=== PATIENT | male | born 1960 | race African-American/Black ===

== ENCOUNTER 2023-03-02 19:43 | Inpatient (IN) | payer OTHER ==
[~2023-03-02] VITALS: Ht 180.3 cm; Wt 74.8 kg
[~2023-03-02 19:43] MED LIST: BENA40TA PO; DIGO250T6 PO; FURO-570 PO; METO25TA14 PO; WARF10TA PO
[2023-03-02 19:44] VITALS: BP 83/52
--- NOTE | 2023-03-02 19:44 | NUR ---
193- [facility]. DR. GUZMÁN BEDSIDE
--- NOTE | 2023-03-02 19:44 | NUR ---
BIB MEDIC TRACH DEPENDENT RESP DISTRESS , SPO2 1ST CONTACT 74% , HYPOTENSIVE, FULL CODE, 300ML IVF GIVEN BY MEDIC
[2023-03-02] MEDS ORDERED: NACL 0.9% 2,000 ML IV SCH (19:45)
[2023-03-02] MEDS ORDERED: cefTRIAXone 1,000 MG in DEXT 5% MINI-BAG PLUS 50 ML IV ONE (19:45)
--- NOTE | 2023-03-02 19:49 | NUR ---
HYPOTENSIVE MD MADE AWARE , ORDER RECEIVED 2L .9% NSBOLUS
[2023-03-02] MEDS ORDERED: cefTRIAXone 1,000 MG VIAL ONE (20:24)
[2023-03-02 20:28] LABS: BASOPHILS # (AUTO) 0.1 K/uL (0.00-0.22); BASOPHILS % (AUTO) 0.5 % (0.0-2.0); EOSINOPHILS # (AUTO) 0.2 K/uL (0-0.4); EOSINOPHILS % (AUTO) 1.4 % (0.0-4.0); HEMATOCRIT 22.8 % (36-52); HEMOGLOBIN 7.2 g/dL (12.0-18.0); LYMPHOCYTES # (AUTO) 1.1 K/uL (2.0-11.5); LYMPHOCYTES % (AUTO) 6.7 % (20.5-51.1); MEAN CORPUSCULAR HEMOGLOBIN 24 pg (27-31); MEAN CORPUSCULAR HGB CONC 31 g/dL (33-37); MEAN CORPUSCULAR VOLUME 76.8 fL (80-94); MONOCYTES # (AUTO) 1.5 K/uL (0.8-1.0); MONOCYTES % (AUTO) 8.8 % (1.7-9.3); NEUTROPHILS # (AUTO) 14.2 K/uL (1.8-7.7); NEUTROPHILS % (AUTO) 82.6 % (42.2-75.2); PLATELET COUNT (AUTO) 467 K/uL (140-450); RED BLOOD CELL COUNT(AUTO) 2.97 MIL/uL (4.20-6.10); WHITE BLOOD COUNT (AUTO) 17.1 K/uL (4.8-10.8)
[2023-03-02 20:39] LABS: APPEARANCE,URINE CLEAR (CLEAR); BILIRUBIN,URINE NEGATIVE (NEGATIVE); BLOOD, URINE 2+ (NEGATIVE); COLOR,URINE YELLOW (YELLOW); LEUKOCYTE ESTERASE ,URINE TRACE (NEGATIVE); NITRITE, URINE NEGATIVE (NEGATIVE); UGLUCOSE 3+ (NEGATIVE)
[2023-03-02] MEDS ORDERED: NOREPINEPHRINE 4 MG in DEXTROSE 5% 250 ML IV ONE (20:40)
[2023-03-02 20:42] LABS: ALBUMIN 2.1 g/dL (3.4-5.0); CARBON DIOXIDE 27.3 mmol/L (21-32); POTASSIUM 5.3 mmol/L (3.5-5.1); TOTAL BILIRUBIN 0.3 mg/dL (0.0-1.0)
[2023-03-02] MEDS ORDERED: NOREPINEPHRINE 4 MG/4 ML VIAL IV ONE (20:44)
--- NOTE | 2023-03-02 21:01 | NUR ---
2000 ML 0.9 NS BOLUS COMPLETED PT REMAIN HYPOTENSIVE, LEVOPHED GTT INITIATED ORDERED
--- NOTE | 2023-03-02 21:04 | NUR ---
Levophed started at 2104 at rate of 4 mcg/min.
--- NOTE | 2023-03-02 21:06 | NUR ---
PICC LINE NURSE AT TO INSERT PICC LINE
--- NOTE | 2023-03-02 21:10 | NUR ---
PICC LINE PLACEMENT CHECK VIA CXR, OK Ramona OU PICC LINE PER DR GUZMÁN
--- NOTE | 2023-03-02 21:14 | NUR ---
Correction: Levophed was started at 2103 not 2113. Currently running at 6mcg/min at this time.
--- NOTE | 2023-03-02 21:35 | NUR ---
CONTYINUE TO TITRATE LEVOPHED, DUE TO HYPOTENSION 79/59
[2023-03-02] MEDS ORDERED: ACETAMINOPHEN 325 MG TAB PO PRN (22:30)
[2023-03-02] MEDS ORDERED: ZOLPIDEM 5 MG TAB PO PRN (22:30)
[2023-03-02] MEDS ORDERED: HYDROcodone/APAP 7.5/325 MG 1 TAB PO PRN (22:30)
[2023-03-02] MEDS ORDERED: NACL 0.9% 1,000 ML IV SCH (22:30)
[2023-03-02] MEDS ORDERED: DOCUSATE SODIUM 100 MG GELCAP PO PRN (22:30)
[2023-03-02] MEDS ORDERED: POTASSIUM CHLORIDE 10 MEQ TABER PO PRN (22:30)
[2023-03-02] MEDS ORDERED: guaiFENesin DM 200/20 MG-10 ML 10 ML UDC PO PRN (22:30)
[2023-03-02] MEDS ORDERED: ONDANSETRON 4 MG/2 ML VIAL IM/IVP PRN (22:30)
[2023-03-02] MEDS ORDERED: NACL 0.9% 1,000 ML IV ONE ×2 (22:40→22:50)
[2023-03-02] MEDS ORDERED: VANCOMYCIN 1GM/DEXT 5% PREMIX 200 ML IV ONE (22:45)
[2023-03-02] MEDS ORDERED: VANCOMYCIN PER PHARMACY MC ONE (22:45)
[2023-03-02 23:09] LABS: MAGNESIUM 2.6 mg/dL (1.8-2.4); PHOSPHORUS 5.3 mg/dL (2.5-4.9)
[2023-03-02] MEDS ORDERED: MIDO5TAB4 GT (23:09)
[2023-03-02] MEDS ORDERED: ATOR80TA27 GT (23:09)
[2023-03-02] MEDS ORDERED: METO100T22 GT (23:09)
[2023-03-02] MEDS ORDERED: ALPR0.2518 GT (23:09)
[2023-03-02] MEDS ORDERED: BACL10TA4 GT (23:09)
[2023-03-02] MEDS ORDERED: QUET100T44 PO (23:09)
[2023-03-02] MEDS ORDERED: BANA1POW GT (23:09)
--- NOTE | 2023-03-02 23:20 | NUR ---
RECEIVED PT FROM FROM ER NURSE, TA GARCIA. PT WHEELED VIA GURNEY, WITH SPONTANEOUS EYE OPENING. NON VERBAL. WITH TRACHEOSTOMY TO VENTILATOR. WITH LEFT IJ LINE GAUGE 18 - INTACT. WITH LEFT DOUBLE LUMEN CATHETER TO LEVOPHED AT 12 MCG/MIN. WITH GTUBE IN PLACE. BARBA CATHETER ATTACHED TO BAG DRAINING WELL. SAFETY MEASURES IN PLACE.
--- NOTE | 2023-03-02 23:22 | NUR ---
TRANSPORTED PT TO ICU WITH LARRY RT - UNEVENTFUL TRANSPEARL
[2023-03-02 23:49] LABS: PROTHROMBIN TIME 18.6 secs (10.8-13.4)
[2023-03-03] VITALS (30 sets, daily range): BP systolic 69–146; BP diastolic 48–96
[2023-03-03] MEDS ORDERED: VANCOMYCIN 1,000 MG VIAL ONE (00:30)
--- NOTE | 2023-03-03 01:59 | NUR ---
PATIENT ON PRESSURE CONTROL MODE DUE TO HIGH PEAK PRESSURES. PC 18 RR 14 ITIME 0.90 PEEP 5
[2023-03-03] MEDS ORDERED: NOREPINEPHRINE 4 MG/4 ML VIAL IV ONE (02:50)
[2023-03-03] MEDS ORDERED: NOREPINEPHRINE 8 MG in DEXTROSE 5% 250 ML IV PRN (03:00)
[2023-03-03 05:30] LABS: BASOPHILS % (AUTO) 0.1 % (0.0-2.0); EOSINOPHILS % (AUTO) 0.1 % (0.0-4.0); HEMATOCRIT 23.7 % (36-52); HEMOGLOBIN 7.5 g/dL (12.0-18.0); LYMPHOCYTES # (AUTO) 1.3 K/uL (2.0-11.5); MEAN CORPUSCULAR HEMOGLOBIN 24 pg (27-31); MEAN CORPUSCULAR HGB CONC 32 g/dL (33-37); MEAN CORPUSCULAR VOLUME 76.1 fL (80-94); MONOCYTES # (AUTO) 1.5 K/uL (0.8-1.0); MONOCYTES % (AUTO) 8.2 % (1.7-9.3); NEUTROPHILS # (AUTO) 15.9 K/uL (1.8-7.7); PLATELET COUNT (AUTO) 516 K/uL (140-450); RED BLOOD CELL COUNT(AUTO) 3.11 MIL/uL (4.20-6.10); RED CELL DISTRIBUTION WIDTH 19.9 % (11.6-13.7); WHITE BLOOD COUNT (AUTO) 18.8 K/uL (4.8-10.8)
[2023-03-03 05:52] LABS: ANION GAP 15.8 (8-16); CARBON DIOXIDE 26.7 mmol/L (21-32); POTASSIUM 5.5 mmol/L (3.5-5.1)
[2023-03-03 06:05] LABS: LYMPHOCYTES % (AUTO) 7.1 % (20.5-51.1); NEUTROPHILS % (AUTO) 84.5 % (42.2-75.2)
[2023-03-03] MEDS ORDERED: DEXMEDETOMIDINE HCL 100 MCG/ML 2 ML VIAL IV ONE ×2 (06:19→23:13)
--- NOTE | 2023-03-03 07:15 | NUR ---
REPORT GIVEN TO DAY SHIFT NURSE, REYES RN. ALL QUESTIONS ANSWERED.
[2023-03-03] MEDS ORDERED: ALBUTEROL SULFATE/IPRATROPIU 3 ML SOL IH PRN (07:25)
--- NOTE | 2023-03-03 07:25 | NUR ---
REPORT RECEIVED FROM DARLING RN, ALL CARES ASSUMED. PT TRACH TO VENT AC/PC 18, 100%, 5. PT RESTING IN BED WITH EYES OPEN, NOT TRACKING OR FOLLOWING COMMANDS. HR 130-140, RR 35-45. LEVOPHED INFUSING TO JERMAINE PICC. BARBA CATHETER TO GRAVITY.
[2023-03-03] MEDS ORDERED: ALBUTEROL SULFATE/IPRATROPIU 3 ML SOL IH ONE (07:33)
--- NOTE | 2023-03-03 07:56 | NUR ---
TRACHEAL SUCTION FOR LARGE THIN YELLOW WITH BLOOD TINGE SECRETIONS; SPUTUM CULTURE SPECIMEN OBTAINED; FORWARDED TO LAB
--- NOTE | 2023-03-03 07:58 | NUR ---
RECEIVED ON A [employer] R860 VENTILATOR PLUGGED INTO RED OUTLET TO A SHILEY XLT #7 AIRWAY SECURED WITH A PEPPER TRACH TIE; TRACHEOSTOMY TUBE PRESENTING WITH PROTRUSION AND AIR LEAKAGE FROM STOMA; DEFLATED CUFF PUSHED TRACHEOSTOMY TUBE IN WITH TRACH PLATE NOW FLUSH WITH STOMA; INCREASED CUFF PRESSURE TO MOV; AMBU BAG AT BEDSIDE; VENTILATOR MODE ON PRESSURE CONTROL; REVIEWED CURRENT AND PREVIOUS PEAK PRESSURES EQUAL AND LESS THAN [id number]; UNABLE TO MAINTAIN ADEQUATE EXPIRATORY Vt OF 6ml/kg (ARDS [id number]); CHANGED MODE TO PRVC NOTED; CUFF PRESSURE INFLATED X 3 FOR MOV; YOUTH SPECIALIST TO MONITOR FOR BLOWN CUFF
[2023-03-03] MEDS: PANTOPRAZOLE 40 MG TABEC PO SCH (08:24)
[2023-03-03] MEDS: VANCOMYCIN PER PHARMACY MC SCH (09:00)
[2023-03-03] MEDS: PIPERACILLIN/TAZOBACTAM 3.375 GM in DEXTROSE 5% 50 ML IV SCH ×3 (09:00→16:41)
--- NOTE | 2023-03-03 09:45 | NUR ---
CALLED TO ICU ABOUT DESATURATION. UPON EVALUATION PT HEART RATE DROPPED AND BLOOD PRESSURE. CODE BLUE WAS CALLED AT 1028.HIGH QUALITY CPR WAS GIVEN WITH 2 ROUNDS OF ASLS DRUGS GIVEN. APROX 1042 ROSC WAS ATTAINED AND PLACED BACK ON VENTILATOR. ABG DRAWN AND RESULTS WERE CALLED TO DR MAXWELL. PER DOCTOR ORDER 2 AMPS OF BICAB AND DECREASE LEVO. WILL CONTINUE TO MONITOR
[2023-03-03] MEDS ORDERED: DEXTROSE 50% 50 ML SYR IVP ONE ×2 (10:26→10:37)
[2023-03-03] MEDS ORDERED: EPINEPHrine PFS 0.1 MG/ML SYR IVP ONE (10:26)
[2023-03-03] MEDS ORDERED: CODE BLUE PARTICIPANT 1 EA MISC MC ONE (10:26)
[2023-03-03] MEDS ORDERED: SODIUM BICARBONATE 8.4% PFS 50 MEQ/50 ML SYR IVP ONE ×2 (10:26→11:06)
--- NOTE | 2023-03-03 10:42 | NUR ---
POST ROSC ABG OBTAINED WITH PATIENT ON VENTILATOR
--- NOTE | 2023-03-03 10:44 | NUR ---
GOOD CHEST RISE AIRWAY PATENT
[2023-03-03] MEDS ORDERED: SODIUM BICARBONATE 8.4% 50 MEQ in DEXTROSE 5% 1,000 ML IV SCH (10:50)
[2023-03-03] MEDS ORDERED: DEXTROSE 50% 50 ML SYR IVP PRN (11:15)
--- NOTE | 2023-03-03 11:20 | NUR ---
PARTH CARLSON AT APPROXIMATELY 1027, PT HEART RATE DECREASED RAPIDLY. PULSES CHECKED, NO PALPABLE PULSES, HR 32BPM ON LIQUID COMPOUNDER. PARTH CARLSON CALLED, COMPRESSIONS STARTED AT 1028. ER DOCTOR LESTER LEADING CODE. ACHIEVED ROSC AT 1037. SEE PARTH CARLSON RECORD IN PT CHART. POST PARTH ABG OBTAINED. DR MAXWELL GAVE TELEPHONE ORDER FOR 2 AMP SODIUM BICARB IVP ONCE. Addendum: 03/03/23 at 1406 by Agency Nurse Eva, RN RN POST DR BRADY ALBA ORDERED 1L NS BOLUS ONCE.
--- NOTE | 2023-03-03 11:25 | NUR ---
DR ALISSA ROBBINS AT BEDSIDE. VERBAL ORDER RECEIVED FOR D51/2NS @ 60ML/HR; HYDROCORTISONE 100MG IVP Q6H. NEOSYNEPHRINE IF CURRENT LEVOPHED DOSE IS NOT SUFFICIENT TO KEEP MAP >65.
[2023-03-03] MEDS ORDERED: SODIUM POLYSTYRENE 15 GM/60 ML UDBTL PEG SCH (11:30)
[2023-03-03] MEDS: BLOOD GLUCOSE MONITORING 1 DEV DEV FS SCH ×3 (11:55→21:00)
[2023-03-03] MEDS: SODIUM BICARBONATE 8.4% 100 MEQ in DEXT 5% / NACL 0.45% 1,000 ML IV SCH (12:43)
[2023-03-03] MEDS: methylPREDNISolone SS 125 MG/2 ML VIAL IVP SCH ×2 (12:49→21:25)
[2023-03-03] MEDS: ALBUTEROL SULFATE/IPRATROPIU 3 ML SOL IH SCH ×2 (13:30→19:47)
--- NOTE | 2023-03-03 13:35 | NUR ---
RESTING COMFORTABLY STABLE GOOD CHEST RISE DEEP TRACHEAL SUCTION FOR MODERATE THIN YELLOW SECRETIONS AIRWAY PATENT
--- NOTE | 2023-03-03 15:52 | NUR ---
SEDATED STABLE EQUAL CHEST RISE DEEP TRAC HEAL SUCTION FOR COPIOUS THIN HAZY SECRETIONS AIRWAY PATENT Addendum: 03/03/23 at 1715 by Michael Contreras RT ACTUAL TIME [id number]
--- NOTE | 2023-03-03 16:12 | NUR ---
ON OR ABOUT THIS TIME; DORMITORY SUPERVISOR ASSIST WITH REYES/FREELANCE DATA ENTRY; PATIENT REPOSITION
[2023-03-03] MEDS ORDERED: DIGOXIN 0.25 MG/ML AMP IV SCH (18:25)
[2023-03-03] MEDS: DEXMEDETOMIDINE HCL 400 MCG in NACL 0.9% 96 ML IV PRN (18:40)
[2023-03-04] VITALS (26 sets, daily range): BP systolic 89–132; BP diastolic 53–90
[2023-03-04] MEDS: ALBUTEROL SULFATE/IPRATROPIU 3 ML SOL IH SCH ×2 (01:44→07:18)
--- NOTE | 2023-03-04 02:20 | NUR ---
RECEIVED PATIENT FROM TA FOURNIER FOR CONTINUITY OF CARE.
[2023-03-04 04:40] LABS: BASOPHILS % (AUTO) 0.2 % (0.0-2.0); HEMOGLOBIN 7.6 g/dL (12.0-18.0); LYMPHOCYTES % (AUTO) 4.5 % (20.5-51.1); MEAN CORPUSCULAR HEMOGLOBIN 24 pg (27-31); MEAN CORPUSCULAR HGB CONC 32 g/dL (33-37); MONOCYTES # (AUTO) 0.6 K/uL (0.8-1.0); MONOCYTES % (AUTO) 2.6 % (1.7-9.3); NEUTROPHILS % (AUTO) 92.7 % (42.2-75.2); PLATELET COUNT (AUTO) 453 K/uL (140-450); RED BLOOD CELL COUNT(AUTO) 3.16 MIL/uL (4.20-6.10); WHITE BLOOD COUNT (AUTO) 21.6 K/uL (4.8-10.8)
[2023-03-04] MEDS ORDERED: DEXMEDETOMIDINE HCL 100 MCG/ML 2 ML VIAL IV ONE (04:44)
[2023-03-04 04:49] LABS: ANION GAP 15.1 (8-16); CARBON DIOXIDE 28.8 mmol/L (21-32); CREATININE 2.2 mg/dL (0.6-1.3); POTASSIUM 4.9 mmol/L (3.5-5.1)
--- NOTE | 2023-03-04 05:00 | NUR ---
MORNING BED BATH DONE; KEPT CLEAN DRY AND COMFORTABLE.
[2023-03-04] MEDS: methylPREDNISolone SS 125 MG/2 ML VIAL IVP SCH ×3 (05:31→20:59)
--- NOTE | 2023-03-04 07:10 | NUR ---
RECEIVED ON A [employer] R860 VENTILATOR PLUGGED INTO RED OUTLET TOLERATING WELL WITHOUT ADVERSE REACTIONS NOTED TO A SHILEY XLT #7 AIRWAY SECURED WITH A PEPPER TRACH TIE CUFF PRESSURE CHECKED NOTED AMBU BAG AT BEDSIDE SEDATED STABLE NO DISTRESS NOTED EQUAL CHEST RISE DEEP TRACHEAL SUCTION FOR LARGE THIN HAZY SECRETIONS AIRWAY PATENT
[2023-03-04] MEDS: SODIUM BICARBONATE 8.4% 100 MEQ in DEXT 5% / NACL 0.45% 1,000 ML IV SCH (07:37)
[2023-03-04] MEDS: DEXMEDETOMIDINE HCL 400 MCG in NACL 0.9% 96 ML IV PRN ×3 (07:38→19:10)
[2023-03-04] MEDS: PANTOPRAZOLE 40 MG TABEC PO SCH (08:28)
--- NOTE | 2023-03-04 08:49 | NUR ---
PATIENT HAS BEEN SCREENED AND CATEGORIZED HIGH NUTRITION RISK. PATIENT WILL BE SEEN WITHIN 1-2 DAYS OF ADMISSION. FNS CONSULT RECEIVED FOR TUBE FEEDING RECOMMENDATION ON 03/04/23. 03/02/23-03/04/[address]
[2023-03-04] MEDS: VANCOMYCIN PER PHARMACY MC SCH (09:00)
--- NOTE | 2023-03-04 09:13 | NUR ---
PT. WITH LOW VASHTI SCALE AT MODERATE TO HIGH RISK, CONTINUE TO FOLLOW PRESSURE INJURY PREVENTION INTERVENTIONS. -POSITIONING: TURN AND REPOSITION PATIENT Q 2H OR SOONER USE PILLOWS TO KEEP BONY PROMINENCES FROM DIRECT CONTACT WITH SURFACES USE REPOSITIONING WEDGES TO PROVIDE 30-DEGREE ANGLE FOR SIDE LYING POSITIONS OFFLOADING OR FOAM DRESSING TO ALL TUBING TO PREVENT MEDICAL DEVICES RELATED PRESSURE INJURY -RE-EVALUATING AND MANAGING INCONTINENCE MONITOR SKIN CONDITION DURING POSITION CHANGE DO NOT MASSAGE REDNESS, BONY PROMINENCES FREQUENT WOO-CARE AND PROVIDE BARRIER CREAMS PRN IF SOILING MOISTURE CONTROL BY OFFER BED CHANDRA/URINAL /ABSORBENT PAD TO WICK AND HOLD MOISTURE KEEP SKIN DRY AND PROTECT FROM FRICTION -MANAGE FRICTION/SHEAR/MOBILITY KEEP HOB AT THE LOWEST LEVEL OF ELEVATION NO MORE THAN 30 DEGREE UNLESS OTHERWISE CONTRAINDICATED USE LIFT SHEET OR TRANSFER DEVICE TO MOVE PATIENT AND PREVENT LATERAL SHEER. PROTECT HEELS, ELBOWS BONY PROMINENCES WITH SKIN BERRIES OR FOAM DRESSING IF EXPOSED TO FRICTION OFFLOAD BILATERAL HEELS BY PLACING PILLOWS UNDER CALVES AT ALL TIMES, UNLESS OTHERWISE CONTRAINDICATED -PRESSURE REDISTRIBUTION SURFACE THERAPY TRUDI ISOFLEX MATTRESS -NUTRITION: PLEASE FOLLOW RD RECOMMENDATIONS AND OFFER NUTRITION SUPPLEMENTS IF ORDERED. PLEASE CONTACT WOUND CARE NURSE FOR ANY QUESTION AND CHANGE OF WOUND CONDITION.
--- NOTE | 2023-03-04 09:55 | NUR ---
SEDATED RESTING COMFORTABLY NO APPARENT DISTRESS NOTED EQUAL CHEST RISE DEEP TRACHEAL SUCTION FOR SMALL THI YELLOW SECRETIONS AIRWAY PATENT SATURATION 100% ON FIO2 OF 60% PEEP [id number] TITRATED FIO2 TO 55% REYES/RUBBER MOLD MAKER NOTIFIED
[2023-03-04] MEDS: VANCOMYCIN 1,000 MG in DEXTROSE 5% 250 ML IV SCH (10:10)
--- NOTE | 2023-03-04 10:15 | NUR ---
ON OR ABOUT THIS TIME BULB GROWER ASSIST WITH RN FOR PATIENT REPOSITION
[2023-03-04] MEDS ORDERED: NACL 0.9% 1,000 ML IV SCH (12:00)
[2023-03-04] MEDS: BLOOD GLUCOSE MONITORING 1 DEV DEV FS SCH ×2 (12:02→17:31)
[2023-03-04] MEDS: PIPERACILLIN/TAZOBACTAM 3.375 GM in DEXTROSE 5% 50 ML IV SCH ×2 (12:03→20:58)
--- NOTE | 2023-03-04 12:24 | NUR ---
03/04/23 RD INITIAL ASSESSMENT COMPLETED PLEASE REFER TO NUTRITION ASSESSMENT UNDER CARE ACTIVITY FOR ESTIMATED NUTRITIONAL NEEDS. 1. MONITOR NPO STATUS 2. WHEN/IF MEDICALLY APPROPRIATE TO START TF, RECOMMEND VITAL AF 1.2 AT GOAL RATE 70 ML/HR, FWF 200 ML Q6H TOLERATED - PROVIDES 1680 ML TOTAL VOLUME, 2016 KCAL, 126 GM PROTEIN AND 2126 ML FREE WATER DAILY MEETING 100% ESTIMATED KCAL AND PROTEIN NEEDS; ADEQUATE - START TF AT 2O ML/HR INCREASE BY 2O ML Q4H UNTIL GOAL IS REACHED TOLERATED 3. CONSULT RD PRN 4. RD TO FOLLOW-UP 2-3 DAYS, HIGH RISK REVIEWED BY MONET HI RD
--- NOTE | 2023-03-04 12:57 | NUR ---
DR. JUHI ROBBINS IN ICU; REVIEWED CARDIAC RATE VS HHN THERAPY WITH DUONEB; VORBO: OKAY TO CHANGE TO XOPONEX 1.25mg; ROUTINE ABG TOMORROW 03/05 AM 0800
[2023-03-04] MEDS ORDERED: LEVALBUTEROL 1.25 MG/0.5 ML NEBU INH PRN (13:10)
[2023-03-04] MEDS: AMIODARONE 450 MG in DEXTROSE 5% 250 ML IV SCH (13:33)
[2023-03-04] MEDS ORDERED: DIGOXIN 0.25 MG/ML AMP IV SCH (13:45)
[2023-03-04] MEDS: LEVALBUTEROL 1.25 MG/0.5 ML NEBU INH SCH ×2 (13:48→20:06)
--- NOTE | 2023-03-04 13:48 | NUR ---
SEDATED NO PULMONARY DISTRESS NOTED EQUAL CHEST RISE GOOD AERATION THROUGHOUT BILATERAL LUNG AIRWAY PATENT
--- NOTE | 2023-03-04 14:03 | NUR ---
DC PLANNING 62 Y O MALE PATIENT A RESIDENT OF [facility] ADMITTED TO ICU FOR HYPOXIA,AND HYPOTENSION.WAS STARTED ON LEVOPHED IN ER.WBC,LACTIC ACID AND TROPONIN LEVELS HIGH.PATIENT IS TACHYCARDIC. OMN AMIO DRIP.BLOOD CULTURE (-).NO MRSA ISOLATED.URINE CULTURE WITH NEGATIVE RODS.CXR SHOWS MULTIFOCAL PNA.ON ZOSYN AND VANCO.ID,NEPHRO,PULMO,AND CARDIO ON BOARD.DC PLAN- BACK TO [facility] WHEN PATIENT RESPONDS TO TX AND PATIENT CONDITION IMPROVES. CM TO FOLLOW. Addendum: 03/06/23 at 1627 by AUBREY BURCH CM DC PLANNING PATIENT IS TRACH TO VENT.03/06 CXR -STABLE CARDIOMEGALY AND PULM VASCULAR CONGESTION.WBC 23.1. BLOOD CULTURE NO GROWTH.NO MRSA ISOLATED FROM NARES.URINE (+) FOR K.PNEUMONIAE.ON AZITHROMYCIN AND VANCOMYCIN.PULMO,NEPHRO,ID AND CARDIO ON BOARD.CM TO FOLLOW. Addendum: 03/12/23 at 1623 by AUBREY BURCH CM DC PLANNING FOR EXPLOR LAP 03/13 TAKEDOWN CLOSURE OF GASTROCUTANEOUS FISTULA AND PLACEMENT OF GASTROSTOMY TUBE.ON PO AMIODARONE AND DIGOXIN.EF 10-15%.CARDIO ON BOARD.TRACH TO VENT DEPENDENT.PULMO FOLLOWING.ON MEROPENEM.ID FOLLOWING.CM TO FOLLOW. Addendum: 03/14/23 at 1630 by AUBREY BURCH CM DC PLANNING PLANNED SURGERY NOT DONE.ANESTHESIA NOT COMFORTABLE GIVING ANESTHESIA DUE TO EF 10-15% .REQUEST FOR TRANSFER TO [facility] INITIATED 03/13 BUT WAS HELD .GASTROSTOMY TUBE REPLACEMENT CAN BE DONE AN OUTPATIENT.PATIENT TO GO BACK TO [facility] WITH TPN TILL .CM TO FOLLOW. Addendum: 03/15/23 at 1623 by Niharika Castillo CM PER PRIMARY NURSE, PATIENT'S BP AND HR ARE ELEVATED. DR. LEMUS INFORMED AND HELD DC. MERVIN OF [facility] INFORMED. PER MERVIN, SHE WILL BE AMMONIA SOLUTION PREPARER THIS WEEKEND AND TO INFORM HER ONCE PATIENT IS STABLE FOR DC OVER THE WEEKEND. MERVIN GREENR 'S NUMBER [phone]. CM TO FOLLOW IF NEEDED. Addendum: 03/15/23 at 1636 by COLEMAN CORONADO CM IF PATIENT IS DISCHARGED OVER WEEKEND [facility] LOCATED AT [address] [facility] [id number]. ROOM 109- UNDER DR DOWNS. [facility] AUTH #[id number]. AND USE CITIZEN OF [facility] FOR TRANSPORTATION. Addendum: 03/18/23 at 1126 by COLEMAN CORONADO CM RECIEVED ORDER FOR PATIENT TO GO BACK TO SNF WITH TPN. [facility] LOCATED AT [address] [id number]. PATIENT WILL BE GOING TO ROOM [address] UNDER DR DOWNS. [facility] AUTH #[id number]. TRANSPORTATION WAS SET UP WITH [employer] FOR A 1500 [employer]ALTH PROMOTION COORDINATOR TIME. CONFIRMATION #[id number] NURSE PARUL AND LAUREN AWARE OF THE ABOVE INFORMATION.
[2023-03-04] MEDS: AZITHROMYCIN 500 MG in DEXTROSE 5% 250 ML IV SCH (14:43)
--- NOTE | 2023-03-04 14:49 | NUR ---
DC PLANNING ASSESSMENT COMPLETE PLEASE REFER TO ASSESSMENT FOR ADDITIONAL DETAILS TENTATIVE DC PLAN IS FOR PT TO RETURN TO IVR ONCE MEDICALLY CLEARED BY PHYSICIAN. ROSANNE REPORTED THAT FACILITY REACHED OUT TO PTS DAUGHTER TO NOTIFY FAMILY OF HOSPITAL ADMISSION TO [facility] . SW ATTEMPTED TO OUTREACH TO PTS DAUGHTER ROSANNA TO CONFIRM INFO GATHERED HOWEVER, NO ANSWER. Addendum: 03/04/23 at 1452 by Daija Reeves SS Amended: Links added.
--- NOTE | 2023-03-04 17:27 | NUR ---
SEDATED NO EVIDENCE OF PULMONARY DISTRESS NOTED GOOD CHEST RISE DEEP TRACHEAL SUCTION FOR SMALL THIN YELLOW SECRETIONS AIRWAY PATENT SATURATION 100% ON FIO2 OF 55% PEEP [id number] TITRATED FIO2 TO 50% PEEP 8cmH2O REYES/CORRECTIONAL OFFICER LIEUTENANT NOTIFIED
--- NOTE | 2023-03-04 19:46 | NUR ---
RECEIVED PT FROM TA CHAMBERS FOR CONTINUITY OF CARE. PT APPEARS TO BE AWAKE WITH EYES OPENING AND TRACKING. NO S/S OF DISTRESS. NON VERBAL. LUNG SOUNDS RALES ON ALL LOBES TO AUSCULTATION. NO SOB. PT ON VENT. PT PRESENTS WITH ATRIAL FIBRILLATION W/ RVR. HR ABOVE 120. AMIODARONE RUNNING AT 1MG/MIN. PT HAD NON PURPOSEFUL ARMS MOVEMENTS AND TRIED TO GRAB RN. PRECEDEX RUNNING AT 1MCG/KG/HR. NORMAL BOWEL SOUNDS. WITH ABDOMINAL BINDER TO KEEP GTUBE IN PLACE. SKIN CLEAN, DRY, AND INTACT. WILL CONTINUE TO MONITOR AND PROVIDE NEEDED CARE.
[2023-03-04] MEDS: NACL 0.9% 1,000 ML IV SCH (20:57)
[2023-03-05] VITALS (17 sets, daily range): BP systolic 87–152; BP diastolic 54–106
[2023-03-05] MEDS: BLOOD GLUCOSE MONITORING 1 DEV DEV FS SCH ×4 (00:49→18:41)
[2023-03-05] MEDS: LEVALBUTEROL 1.25 MG/0.5 ML NEBU INH SCH ×3 (01:11→19:46)
[2023-03-05] MEDS ORDERED: DEXMEDETOMIDINE HCL 100 MCG/ML 2 ML VIAL IV ONE ×2 (01:25→07:09)
[2023-03-05] MEDS: DEXMEDETOMIDINE HCL 400 MCG in NACL 0.9% 96 ML IV PRN ×5 (01:25→22:32)
[2023-03-05] MEDS: PIPERACILLIN/TAZOBACTAM 3.375 GM in DEXTROSE 5% 50 ML IV SCH ×3 (05:09→22:00)
[2023-03-05] MEDS: methylPREDNISolone SS 125 MG/2 ML VIAL IVP SCH ×3 (05:10→21:59)
[2023-03-05 05:14] LABS: HEMATOCRIT 24.1 % (36-52); HEMOGLOBIN 7.6 g/dL (12.0-18.0); LYMPHOCYTES # (AUTO) 0.4 K/uL (2.0-11.5); LYMPHOCYTES % (AUTO) 1.6 % (20.5-51.1); MEAN CORPUSCULAR HEMOGLOBIN 24 pg (27-31); MEAN CORPUSCULAR HGB CONC 32 g/dL (33-37); MONOCYTES # (AUTO) 0.8 K/uL (0.8-1.0); NEUTROPHILS # (AUTO) 24.5 K/uL (1.8-7.7); NEUTROPHILS % (AUTO) 95.4 % (42.2-75.2); PLATELET COUNT (AUTO) 399 K/uL (140-450); RED BLOOD CELL COUNT(AUTO) 3.17 MIL/uL (4.20-6.10); RED CELL DISTRIBUTION WIDTH 20.4 % (11.6-13.7)
[2023-03-05 05:42] LABS: ANION GAP 10.4 (8-16); CARBON DIOXIDE 31.9 mmol/L (21-32); CREATININE 1.9 mg/dL (0.6-1.3); POTASSIUM 3.3 mmol/L (3.5-5.1)
[2023-03-05] MEDS ORDERED: AMIODARONE 450 MG/9 ML VIAL IV ONE (05:42)
[2023-03-05 05:43] LABS: WHITE BLOOD COUNT (AUTO) 25.7 K/uL (4.8-10.8)
[2023-03-05] MEDS: AMIODARONE 450 MG in DEXTROSE 5% 250 ML IV SCH (05:46)
--- NOTE | 2023-03-05 07:15 | NUR ---
RECEIVED REPORT FROM OPTICIANRY TEACHER NURSE TA BRIZUELA. PATIENT IS UNABLE TO FOLLOW COMMANDS. PERRL NOTED. CURRENTLY ON AC/PRVC FIO2 40%, TV 450, RR 20, PEEP 5 O2 SATURATION 98%. AFIB ON MONITOR. ABDOMEN IS SOFT WITH ALL ABDOMINAL QUADRANTS ACTIVE, PATIENT HAS G-TUBE CURRENTLY NPO. PATIENT HAS PICC LINE ON LEFT UPPER ARM INFUSING AT 1 MCG WITH PRECEDEX, AMIODARONE 0.5 MG, NS INFUSING AT 60 ML AND TKO AT 5 ML. NO SKIN BREAKDOWN NOTED. HOB 30 DEGREE FOR ASPIRATION PRECAUTION, BED WHEELS LOCKED AND IN LOWEST POSITION.
[2023-03-05] MEDS: PANTOPRAZOLE 40 MG TABEC PO SCH (08:42)
[2023-03-05] MEDS: VANCOMYCIN 1,000 MG in DEXTROSE 5% 250 ML IV SCH (08:43)
[2023-03-05] MEDS: VANCOMYCIN PER PHARMACY MC SCH (08:44)
--- NOTE | 2023-03-05 12:15 | NUR ---
TALKED TO TA MAR, WHO RECEIVED VERBAL ORDERS FROM DR. MAXWELL TO CHANGE PT VENT SETTINGS TO VT400 RR16. CHANGES WERE MADE PT DURGA WELL. WILL CONT TO MONITOR. NO DISTRESS NOTED
[2023-03-05] MEDS: NACL 0.9% 1,000 ML IV SCH ×2 (15:01→18:49)
[2023-03-05] MEDS: AZITHROMYCIN 500 MG in DEXTROSE 5% 250 ML IV SCH (15:02)
--- NOTE | 2023-03-05 19:40 | NUR ---
RECEIVED PT. FROM DAY SHIFT TA QUIROGA. PT. ON TRACH TO VENT A/C PRVC RATE 16, TV 400, FIO2 40%, PEEP 6 AND O2 SAT 99%. BILATERAL LUNGS CRACKLES, RONCHI. EYES REACTIVE TO LIGHT AND ACCOMMODATION. IV TO LEFT UPPER ARM PICC LINE PATENT AND INTACT. NO S/S OF INFECTION OR INFILTRATION. INFUSING PRECEDEX DRIP 1.2 MCG/KG/HR. ATRIAL FIBRILLATION ON THE STARTING GATE DRIVER. ABDOMEN ROUND AND NON TENDER. GT FEEDING VITAL AF 1.2 AT 20 ML/HR TOLERATING WELL. SKIN INTACT. BARBA CATHETER TO GRAVITY WITH CLEAR YELLOW COLOR URINE. ON LEFT SOFT WRIST RESTRAINT PER MD ORDERED DUE TO TENDENCY TO PULL OUT GT, IV AND MEDICAL LINES AND TUBINGS. RESTRAINT SITE NO S/S OF POOR CIRCULATION. NO S/S OF INJURY. CALL LIGHT WITHIN REACH. MAKE ALL NEEDS KNOWN. PLACED IN COMFORTABLE POSITION. BEDLOCK AND BED TO THE LOWEST HEIGHT. NO S/S OF RESPIRATORY DISTRESS. NO S/S OF PAIN. WILL CONT. TO MONITOR.
--- NOTE | 2023-03-05 19:45 | NUR ---
PT IS AWAKE, NO RESPIRATORY DISTRESS NOTED, AND EQUAL, BILATERAL CHEST RISE. PT BREATH SOUNDS ARE RHONCHI. GIVEN XOPENEX, PT TOLERATED TXN WELL. WILL CONTINUE TO MONITOR.
--- NOTE | 2023-03-05 20:57 | NUR ---
MADE ROUNDS, CHECKED PT. AND TALKED TO THE PT. WHO HAPPENS TO BE AWAKE.
[2023-03-05] MEDS: LORazepam 2 MG/ML VIAL IVP PRN (23:30)
[2023-03-05] MEDS ORDERED: LORazepam 2 MG/ML VIAL ONE (23:31)
--- NOTE | 2023-03-05 23:31 | NUR ---
PT. APPEARS TO BE VERY AGITATED AND TRYING TO SCRATCH AND KICK WHOEVER GETS CLOSE TO HIM. I CALLED DR. LOPEZ AND REPORTED PT. BEHAVIOR. PT. ON PRECEDEX DRIP OF 1.2 MCG/KG/HR. ORDERED TO GIVE ATIVAN 2 MG IVP Q 2 HRS. FOR AGITATION. WILL ORDER AND WILL CARRY OUT.
[2023-03-06] VITALS (32 sets, daily range): BP systolic 116–156; BP diastolic 75–101
[2023-03-06] MEDS: BLOOD GLUCOSE MONITORING 1 DEV DEV FS SCH ×4 (00:07→17:44)
[2023-03-06] MEDS: LEVALBUTEROL 1.25 MG/0.5 ML NEBU INH SCH ×4 (01:43→19:48)
--- NOTE | 2023-03-06 02:42 | NUR ---
PT CONTINUES TO SAT 100%. RECENT ABG INDICATED PAO2 OF 138. PER PROTOCOL DECREASED PEEP TO 6 AT 2202. ON NEXT CHECK AT 0141, PT ASLEEP, O2 WAS STILL 100%, FiO2 DECREASED TO 35%. PT RESTING COMFORABLY, NO DISTRESS NOTED. WILL CONTINUE TO MONITOR PT.
[2023-03-06] MEDS: DEXMEDETOMIDINE HCL 400 MCG in NACL 0.9% 96 ML IV PRN ×3 (02:47→14:37)
[2023-03-06] MEDS: PIPERACILLIN/TAZOBACTAM 3.375 GM in DEXTROSE 5% 50 ML IV SCH (04:23)
[2023-03-06] MEDS: methylPREDNISolone SS 125 MG/2 ML VIAL IVP SCH ×3 (04:35→20:59)
[2023-03-06 05:07] LABS: BASOPHILS % (AUTO) 0.1 % (0.0-2.0); HEMATOCRIT 26.1 % (36-52); HEMOGLOBIN 8.1 g/dL (12.0-18.0); LYMPHOCYTES # (AUTO) 0.3 K/uL (2.0-11.5); LYMPHOCYTES % (AUTO) 1.3 % (20.5-51.1); MEAN CORPUSCULAR HEMOGLOBIN 24 pg (27-31); MEAN CORPUSCULAR HGB CONC 31 g/dL (33-37); MEAN CORPUSCULAR VOLUME 76.3 fL (80-94); MONOCYTES # (AUTO) 0.6 K/uL (0.8-1.0); MONOCYTES % (AUTO) 2.5 % (1.7-9.3); NEUTROPHILS # (AUTO) 22.2 K/uL (1.8-7.7); NEUTROPHILS % (AUTO) 96.1 % (42.2-75.2); PLATELET COUNT (AUTO) 363 K/uL (140-450); RED BLOOD CELL COUNT(AUTO) 3.42 MIL/uL (4.20-6.10); RED CELL DISTRIBUTION WIDTH 20.8 % (11.6-13.7); WHITE BLOOD COUNT (AUTO) 23.1 K/uL (4.8-10.8)
[2023-03-06 05:24] LABS: ANION GAP 10.5 (8-16); CARBON DIOXIDE 30.3 mmol/L (21-32); CREATININE 1.5 mg/dL (0.6-1.3)
[2023-03-06] MEDS: NACL 0.9% 1,000 ML IV SCH ×2 (06:17→22:33)
[2023-03-06 06:22] LABS: POTASSIUM 2.8 mmol/L (3.5-5.1)
--- NOTE | 2023-03-06 06:41 | NUR ---
LAB CALLED FOR WBC 23.1 AND K 2.8. SENT MESSAGE TO DR. LEMUS AND WILL WAIT FOR HIS NEW ORDER. WILL ENDORSE TO THE NEXT SHIFT.
--- NOTE | 2023-03-06 06:53 | NUR ---
DR. LEMUS RESPONDED, STATED " I WILL REPLACE". WILL ENDORSE TO THE NEXT SHIFT.
--- NOTE | 2023-03-06 07:15 | NUR ---
RECEIVED BEDSIDE REPORT FROM EMERGENCY TELECOMMUNICATIONS DISPATCHER CHATA CHAPPELL. PT IS SEDATED. TRACH TO VENT, AC PRVC FIO2 35%, VT 400, RATE 16, PEEP 6. A FIB ON MONITOR. G TUBE IN PLACE, TUBE FEEDING HELD DUE TO LEAKING FROM G TUBE INSERTION SITE. BARBA IN PLACE, URINE CLEAR AND YELLOW. PICC LINE TO SCARLETT, INFUSING NS @ 60 MLS/H, TKO NS 5ML/H, PRECEDEX @ 1.00 MCG/KG/H. SKIN INTACT. RT SIDED HEMIPLEGIA DUE TO HX OF CVA. LT SIDE SOFT WRIST RESTRAINT IN PLACE. BEDREST. SAFETY PRECAUTION IN PLACE, WILL CONTINUE TO MONITOR.
--- NOTE | 2023-03-06 07:23 | NUR ---
RECEIVED PT ON PRVC TV400, F16, IT 0.85, PEEP 6, 35%. SATURATION IS 100%. TITRATED FIO2 TO 30%. BREATH SOUNDS ARE COARSE. SUCTIONED MODERATE AMOUNT OF CREAM COLORED SECRETIONS. VENT WHEELS ARE LOCKED, PLUGGED INTO RED OUTLET, AMBU BAG AT BEDSIDE, ALARMS ARE SET AND AUDIBLE. WILL CONTINUE TO MONITOR.
--- NOTE | 2023-03-06 07:28 | NUR ---
REPORT GIVEN TO TA SY FOR CONTINUITY OF CARE.
[2023-03-06] MEDS: DIGOXIN 0.25 MG/ML AMP IV SCH (08:25)
[2023-03-06] MEDS: PANTOPRAZOLE 40 MG TABEC PO SCH (08:25)
[2023-03-06] MEDS ORDERED: KCL 20 MEQ IN 100 mL PREMIX 200 ML IV SCH (10:00)
[2023-03-06] MEDS: VANCOMYCIN 1,000 MG in DEXTROSE 5% 250 ML IV SCH (10:04)
[2023-03-06] MEDS: VANCOMYCIN PER PHARMACY MC SCH (10:04)
[2023-03-06] MEDS ORDERED: DEXTROSE 50% 50 ML SYR IVP PRN (11:45)
[2023-03-06] MEDS: INSULIN LISPRO SLIDING SCALE 100 UNITS/ML VIAL SUBQ PRN (12:37)
--- NOTE | 2023-03-06 13:00 | NUR ---
PT HAD RESIDUAL FROM G -TUB 130CC AT 0900 , THE NIGHT NURSE HELD THE FEEDING FOR HIGH RESIDUAL SINCE 4AM , CHECKED AGAIN AT NOON PT STILL HAVE ABOUT 40CC RESIDUAL AND ALSO SOCKED DRESSING CHANGED OVER THE G-TUB , THERE IS CONTINUED SEEPING OF DRAINAGE COMING OUT FROM THE G-TUB INSERTION SITE. SO CALLED THE ,MI DR LOPEZ HOLD THE FEEDING FOR NOW, DR SAID HE WILL ORDER SURGERY CONSULT. [id number]
--- NOTE | 2023-03-06 13:05 | NUR ---
DR ALLAN ROBBINS AT BEDSIDE. UPDATED PT INFORMATION.
--- NOTE | 2023-03-06 13:51 | NUR ---
03/06/23 RD FOLLOW UP COMPLETED PLEASE REFER TO NUTRITION ASSESSMENT UNDER CARE ACTIVITY FOR ESTIMATED NUTRITIONAL NEEDS. 1. CONTINUE ON CURRENT TUBE FEEDING OF VITAL AF 1.2 AT GOAL RATE 70 ML/HR, FWF 200 ML Q6H TOLERATED. THIS WILL PROVIDE 2016 CALORIES AND 120GRAMS OF PROTEIN WHICH WILL MEET AT LEAST 75% OF ESTIMATED NUTRITION NEEDS. 2. MONITOR GI, PO INTAKE, AND NUTRITION RELATED LAB VALUES. 3. RD TO FOLLOW-UP 2-3 DAYS, HIGH RISK OSKAR SHEIKH RD
[2023-03-06] MEDS ORDERED: KCL 20 MEQ IN 100 mL PREMIX 100 ML IV SCH (14:00)
[2023-03-06] MEDS: AZITHROMYCIN 500 MG in DEXTROSE 5% 250 ML IV SCH (14:03)
--- NOTE | 2023-03-06 14:21 | NUR ---
DR YOUSIF ROBBINS AT BEDSIDE. UPDATED PT INFORMATION.
--- NOTE | 2023-03-06 18:17 | NUR ---
PT AWAKE WATCHING TV, FOLLOWS SOME COMMAND, STABLE, WINNING OF THE PRECEDEX.[id number]
--- NOTE | 2023-03-06 19:14 | NUR ---
ENDORSED TO PLANT CONTROL AIDE CHEYENNE/DARLING RN FOR CONTINUITY OF CARE. ALL QUESTION ANSWERED.
--- NOTE | 2023-03-06 19:15 | NUR ---
RECEIVED REPORT FROM DAY SHIFT NURSE, YOSSI CHAPPELL. ALL CARES ASSUMED. RECEIVED PT ON BED, AWAKE AND MOVES A LOT ON BED. ON LOW SEMI-RIZZO'S POSITION WITH SIDE-RAILS RAISED UP. WITH TRACHEOSTOMY TUBE TO VENT, EQUAL CHEST RISE AND FALL NOTED, SPO2 OF 100%- NOT IN DISTRESS. SWITH LEFT UPPER PICC LINE - DRY AND INTACT WITH FLOWING NS AT 60 ML/HR AND PRECEDEX AT 0.3 MCG/KG/H. WITH G-TUBE SLIGHT LEAKING OBSERVED - PHYSICIAN AWARE. WITH BARBA CATHETER IN PLACE DRAINING BY GRAVITY. SKIN IS DRY AND INTACT.
[2023-03-06] MEDS: LORazepam 2 MG/ML VIAL IVP PRN ×2 (20:23→23:25)
[2023-03-06] MEDS: MEROPENEM 1,000 MG in NACL 0.9% 50 ML IV SCH (20:29)
[2023-03-07] VITALS (30 sets, daily range): BP systolic 100–160; BP diastolic 74–120
[2023-03-07] MEDS: BLOOD GLUCOSE MONITORING 1 DEV DEV FS SCH ×5 (00:56→23:47)
[2023-03-07] MEDS: LEVALBUTEROL 1.25 MG/0.5 ML NEBU INH SCH ×4 (02:04→19:36)
[2023-03-07] MEDS: LORazepam 2 MG/ML VIAL IVP PRN ×2 (02:29→22:49)
[2023-03-07 05:14] LABS: BASOPHILS % (AUTO) 0.1 % (0.0-2.0); HEMATOCRIT 24.2 % (36-52); HEMOGLOBIN 7.6 g/dL (12.0-18.0); LYMPHOCYTES # (AUTO) 0.2 K/uL (2.0-11.5); LYMPHOCYTES % (AUTO) 1.3 % (20.5-51.1); MEAN CORPUSCULAR HEMOGLOBIN 24 pg (27-31); MEAN CORPUSCULAR HGB CONC 31 g/dL (33-37); MEAN CORPUSCULAR VOLUME 76.3 fL (80-94); MONOCYTES # (AUTO) 0.5 K/uL (0.8-1.0); MONOCYTES % (AUTO) 2.6 % (1.7-9.3); PLATELET COUNT (AUTO) 339 K/uL (140-450); RED BLOOD CELL COUNT(AUTO) 3.18 MIL/uL (4.20-6.10); RED CELL DISTRIBUTION WIDTH 21.2 % (11.6-13.7); WHITE BLOOD COUNT (AUTO) 18.8 K/uL (4.8-10.8)
[2023-03-07] MEDS: methylPREDNISolone SS 125 MG/2 ML VIAL IVP SCH ×3 (05:17→21:27)
[2023-03-07 05:27] LABS: CARBON DIOXIDE 29.8 mmol/L (21-32); CREATININE 1.3 mg/dL (0.6-1.3)
[2023-03-07 06:05] LABS: POTASSIUM 2.8 mmol/L (3.5-5.1)
--- NOTE | 2023-03-07 07:30 | NUR ---
REPORT GIVEN TO DAY SHIFT NURSERUBI RN. ALL QUESTIONS ANSWERED.
--- NOTE | 2023-03-07 08:00 | NUR ---
patient in bed, trach to vent, left wrist restraint, attempting to ambulate, bed in lowest locked position with bed alarm on and within view of nurses station.
[2023-03-07] MEDS: MEROPENEM 1,000 MG in NACL 0.9% 50 ML IV SCH ×2 (08:25→21:22)
[2023-03-07] MEDS: DIGOXIN 0.25 MG/ML AMP IV SCH (08:37)
[2023-03-07] MEDS: PANTOPRAZOLE 40 MG TABEC PO SCH (08:38)
[2023-03-07] MEDS: VANCOMYCIN PER PHARMACY MC SCH (09:00)
[2023-03-07] MEDS: DEXMEDETOMIDINE HCL 400 MCG in NACL 0.9% 96 ML IV PRN (09:47)
[2023-03-07] MEDS: VANCOMYCIN 1,000 MG in DEXTROSE 5% 250 ML IV SCH (10:27)
[2023-03-07] MEDS ORDERED: POTASSIUM CHLORIDE 40 MEQ, LIDOCAINE 1% 25 MG in NACL 0.9% 250 ML IV SCH ×2 (11:00→15:00)
--- NOTE | 2023-03-07 13:00 | NUR ---
dr rogers rounded on patient, made aware of GT leaking and that k+ replacement was ordered by drawing in machine tender helper.
--- NOTE | 2023-03-07 14:26 | NUR ---
paged dr vu's office to ensure GI consult was called in.
[2023-03-07] MEDS: AZITHROMYCIN 500 MG in DEXTROSE 5% 250 ML IV SCH (14:31)
[2023-03-07] MEDS: NACL 0.9% 1,000 ML IV SCH (15:35)
--- NOTE | 2023-03-07 18:00 | NUR ---
DR MILLS ROUNDED ON PATIENT, ASSESSED GT. ORDERED TO RESTART FEEDING IN AM AT 30ML/HR AND TO MONITOR FOR ANY LEAKING.
--- NOTE | 2023-03-07 18:45 | NUR ---
THROUGHOUT SHIFT PATIENT INTERMITTENTLY BECAME TACHYCARDIC WHEN PATIENT WAS ATTEMPTING TO GET OUT OF BED. ONCE REPOSITIONED AND CALMED, HEART RATE LOWERED. UNCONTROLLED AFIB. ACTIVE DIGOXIN ORDER. MD AWARE
--- NOTE | 2023-03-07 19:50 | NUR ---
RECEIVED REPORT FROM AM SHIFT. PATIENT WAS SEEN AND ASSESSED. PATIENT IS TRACH WITH SHILEY XLT SIZE 7.0 AND SECURED WITH A TRACH TIE. PATIENT IS ON VENTILATOR SUPPORT. VENT SETTINGS: AC/PRVC RR 16, VT 400, PEEP 6, FiO2 28% WITH SPO2 OF 99%. VENTILATOR PLUGGED IN RED OUTLET. VENTILATOR ALARMS SET APPROPRIATELY AND AUDIBLE TO ENVIRONMENT. AMBU BAG AT BEDSIDE. HEAD OF BED GREATER THAN 30 DEGREES. NOTICED ADEQUATE BILATERAL CHEST RISE AND FALL. PATIENT IS IN NO RESPIRATORY DISTRESS AT THIS TIME. SUCTIONED SMALL WHITE THIN SECRETIONS AND SMALL WHITE THIN ORALLY. BILATERAL BREATH SOUNDS ON AUSCULTATION; UPPER LOBES: COARSE CRACKLES LOWER LOBES: COARSE CRACKLES PEAK PRESSURE: 22 cmH20 PLATEAU PRESSURE: 16 cmH20 DRIVING PRESSURE: 10 cmH20 WILL CONTINUE TO MONITOR PATIENT. SCHEDULE TX GIVEN ORDERED AND PT TOLERATED WELL WITH NO ADVERSE REACTION WILL CONTINUE TO MONITOR PATIENT.
[2023-03-08] VITALS (29 sets, daily range): BP systolic 92–156; BP diastolic 30–140
[2023-03-08] MEDS: LEVALBUTEROL 1.25 MG/0.5 ML NEBU INH SCH ×4 (00:29→18:48)
[2023-03-08] MEDS: DEXMEDETOMIDINE HCL 400 MCG in NACL 0.9% 96 ML IV PRN (01:36)
[2023-03-08] MEDS: NACL 0.9% 1,000 ML IV SCH (04:46)
[2023-03-08] MEDS: methylPREDNISolone SS 125 MG/2 ML VIAL IVP SCH ×3 (04:47→20:55)
[2023-03-08] MEDS: BLOOD GLUCOSE MONITORING 1 DEV DEV FS SCH ×3 (05:13→17:58)
[2023-03-08 05:30] LABS: BASOPHILS % (AUTO) 0.1 % (0.0-2.0); HEMATOCRIT 25.2 % (36-52); HEMOGLOBIN 7.8 g/dL (12.0-18.0); LYMPHOCYTES # (AUTO) 0.2 K/uL (2.0-11.5); LYMPHOCYTES % (AUTO) 1.7 % (20.5-51.1); MEAN CORPUSCULAR HEMOGLOBIN 24 pg (27-31); MEAN CORPUSCULAR HGB CONC 31 g/dL (33-37); MEAN CORPUSCULAR VOLUME 77.9 fL (80-94); MONOCYTES # (AUTO) 0.2 K/uL (0.8-1.0); NEUTROPHILS # (AUTO) 11.7 K/uL (1.8-7.7); NEUTROPHILS % (AUTO) 96.2 % (42.2-75.2); PLATELET COUNT (AUTO) 296 K/uL (140-450); RED BLOOD CELL COUNT(AUTO) 3.23 MIL/uL (4.20-6.10); WHITE BLOOD COUNT (AUTO) 12.2 K/uL (4.8-10.8)
[2023-03-08 06:01] LABS: ANION GAP 11.7 (8-16); CARBON DIOXIDE 27.2 mmol/L (21-32); CREATININE 1.1 mg/dL (0.6-1.3); POTASSIUM 3.9 mmol/L (3.5-5.1)
--- NOTE | 2023-03-08 06:45 | NUR ---
TUBE FEEDING STARTED AT 600. PATIENT IS CALM ON ON THE VENT WITH PRECEDEX AT 0.3. WHEN PATIENT COUGHS IT DOES SOUND LIKE AIR IS COMING OUT OF HIS G TUBE SITE.
[2023-03-08] MEDS: PANTOPRAZOLE 40 MG TABEC PO SCH (08:20)
[2023-03-08] MEDS: MEROPENEM 1,000 MG in NACL 0.9% 50 ML IV SCH ×2 (08:20→20:59)
[2023-03-08] MEDS: DIGOXIN 0.25 MG/ML AMP IV SCH (08:21)
[2023-03-08] MEDS: LORazepam 2 MG/ML VIAL IVP PRN ×2 (09:41→20:04)
[2023-03-08] MEDS: VANCOMYCIN 1,000 MG in DEXTROSE 5% 250 ML IV SCH (09:41)
[2023-03-08] MEDS: VANCOMYCIN PER PHARMACY MC SCH (09:42)
--- NOTE | 2023-03-08 10:21 | NUR ---
DR SUTHERLAND ROUNDED ON PATIENT. MADE AWARE OF INTERMITTENT ELEVATED HEART RATE. NO NEW ORDERS AT THIS TIME.
--- NOTE | 2023-03-08 11:30 | NUR ---
PAGED DR SUTHERLAND AND NOTIFIED THAT AFIB IS UNCONTROLLED WITH RATE SUSTAINING ELEVATED UP TO 160S BEATS PER MINUTE. ORDERED TO GIVE AMIODARONE GT 400MG BID WITH ONE DOSE NOW.
[2023-03-08] MEDS: AMIODARONE 200 MG TAB PO SCH ×2 (11:53→20:56)
[2023-03-08] MEDS: INSULIN LISPRO SLIDING SCALE 100 UNITS/ML VIAL SUBQ PRN (11:58)
--- NOTE | 2023-03-08 13:53 | NUR ---
03/08/23 RD FOLLOW UP COMPLETED PLEASE REFER TO NUTRITION ASSESSMENT UNDER CARE ACTIVITY FOR ESTIMATED NUTRITIONAL NEEDS. 1. RD RECOMMENDS INCREASE OSMOLITE 1.5 @30ML/HR WITH FWF OF 150 Q12H TO GOAL RATE OF 45ML/HR WITH FWF 200ML Q4H TOLERATED. THIS WILL PROVIDE PATIENT WITH 1620KCAL, 67GRAMS OF PROTEIN MEETING AT LEAST 75% OF ESTIMATED NUTRITIONAL NEEDS. 2. MONITOR GI, PO INTAKE, AND NUTRITION RELATED LAB VALUES. 3. RD TO FOLLOW-UP 2-3 DAYS, HIGH RISK OSKAR SHEIKH RD
--- NOTE | 2023-03-08 14:00 | NUR ---
PATIENT PULLED OUT HIS PICC LINE DESPITE REORIENTATION, EDUCATION, RESTRAINTS, REPOSITIONING, AND FREQUENT MONITORING. DR BARRETO AWARE. MULTIPLE FAILED ATTEMPTS TO INSERT IV. DR BARRETO ORDERED FOR PICC LINE INSERTION. CONSENT FROM RECEIVED AND PICC NURSE AWARE.
--- NOTE | 2023-03-08 14:20 | NUR ---
NOTIFIED DR SUTHERLAND OF ELEVATED HR WITH NO IV ACCESS, NO NEW ORDERS AT THIS TIME.
[2023-03-08] MEDS: AZITHROMYCIN 500 MG in DEXTROSE 5% 250 ML IV SCH (15:00)
--- NOTE | 2023-03-08 15:25 | NUR ---
DR SUTHERLAND MADE AWARE OF PATIENT'S HEART RATE SUSTAINING IN THE 170-180S. ORDERED TO GIVE METOPROLOL TARTRATE 50MG GT BID WITH FIRST DOSE NOW. READ BACK VERIFIED.
[2023-03-08] MEDS: METOPROLOL 50 MG TAB PO SCH ×2 (15:32→20:55)
--- NOTE | 2023-03-08 15:50 | NUR ---
DR PAYNE ORDERS TO HOLD TELE TRANSFER AND KEEP PATIENT IN ICU FOR ELEVATED HEART RATE AT THIS TIME.
--- NOTE | 2023-03-08 19:15 | NUR ---
RECEIVED PATIENT ON BED; RESTLESS, TRYING TO GET OUT FROM THE BED. ON TRACH TO VENT AT 24% FIO2, SO2 98%. CARDIACSCOPE SHOWS ON A FIB ; NO IV LINE THE PATIENT PULLED OUT HIS PICC LINE ENDORSED BY THE PREVIOUS SHIFT. ABDOMEN IS SOFT, TUBE FEEDING ON HOLD BECAUSE TUBE FEEDING IS LEAKING. BARBA CATH IN PLACE TO GRAVITY DRAINAGE BAG DRAINING TO CLEAR YELLOW URINE; INTACT.
--- NOTE | 2023-03-08 20:00 | NUR ---
HAD BM TO A LARGE AMOUNT OF SOFT YELLOW STOOL; KEPT CLEAN DRY AND COMFORTABLE.
--- NOTE | 2023-03-08 21:30 | NUR ---
IVF NORMAL SALINE 60 ML/HR RESUMED AND ALSO PRECEDEX DRIP RESUMED AT 0.02 MCG/KG/HR SOON PERIPHERAL LINE WAS INSERTED ON RIGHT HAND.
--- NOTE | 2023-03-08 21:34 | NUR ---
DR. BERNABE INFECTION CONTROL CALLED ON TELEPHONE AND HE ORDERED TO DC PATIENT'S ANTIBIOTIC VANCO AND AZITHROMYCIN; CARRIED OUT.
--- NOTE | 2023-03-08 22:30 | NUR ---
PICC LINE NURSE HERE AND INSERTED PICC LINE ON LEFT UPPER ARM AND WAS CONFIRMED BY CHEST XRAY.
[2023-03-09] VITALS (21 sets, daily range): BP systolic 116–186; BP diastolic 3–110
--- NOTE | 2023-03-09 | NUR ---
ACCUCHECK DONE 97, NO INSULIN GIVEN PER SLIDING SCALE.
--- NOTE | 2023-03-09 00:30 | NUR ---
ORAL CARE DONE WITH VAP KIT; REPOSITIONED PATIENT.
[2023-03-09] MEDS: LORazepam 2 MG/ML VIAL IVP PRN ×3 (00:46→12:54)
[2023-03-09] MEDS: LEVALBUTEROL 1.25 MG/0.5 ML NEBU INH SCH ×4 (02:19→19:16)
[2023-03-09] MEDS: methylPREDNISolone SS 125 MG/2 ML VIAL IVP SCH ×3 (05:35→20:36)
[2023-03-09 05:47] LABS: BASOPHILS % (AUTO) 0.1 % (0.0-2.0); HEMATOCRIT 26.3 % (36-52); LYMPHOCYTES # (AUTO) 0.3 K/uL (2.0-11.5); LYMPHOCYTES % (AUTO) 1.7 % (20.5-51.1); MEAN CORPUSCULAR HEMOGLOBIN 24 pg (27-31); MEAN CORPUSCULAR HGB CONC 30 g/dL (33-37); MONOCYTES # (AUTO) 0.3 K/uL (0.8-1.0); MONOCYTES % (AUTO) 2.1 % (1.7-9.3); NEUTROPHILS # (AUTO) 14.7 K/uL (1.8-7.7); NEUTROPHILS % (AUTO) 96.1 % (42.2-75.2); PLATELET COUNT (AUTO) 293 K/uL (140-450); RED BLOOD CELL COUNT(AUTO) 3.37 MIL/uL (4.20-6.10); RED CELL DISTRIBUTION WIDTH 21.9 % (11.6-13.7); WHITE BLOOD COUNT (AUTO) 15.3 K/uL (4.8-10.8)
[2023-03-09] MEDS: BLOOD GLUCOSE MONITORING 1 DEV DEV FS SCH ×4 (06:00→19:02)
[2023-03-09 06:10] LABS: ANION GAP 12.7 (8-16); CARBON DIOXIDE 26.6 mmol/L (21-32); CREATININE 1.1 mg/dL (0.6-1.3); POTASSIUM 4.3 mmol/L (3.5-5.1)
[2023-03-09 06:15] LABS: MAGNESIUM 2.5 mg/dL (1.8-2.4); PHOSPHORUS 3.3 mg/dL (2.5-4.9)
--- NOTE | 2023-03-09 07:15 | NUR ---
RECEIVED REPORT FROM DIRECTOR CAREER SERVICES NURSE TA QUINN. PATIENT IS UNABLE TO FOLLOW YES OR NO COMMANDS. PERRL NOTED. CRACKLES NOTED UPON LUNG AUSCULTATION. TRACH TO VENT CURRENTLY ON A/C PRVC FIO2 24%, VT 400, RR 16, PEEP 5 O2 SATURATION OF 97%. A-FIB ON MONITOR. ABDOMEN IS SOFT WITH ALL ABDOMINAL QUADRANTS ACTIVE. G-TUBE IN PLACE AND CLAMPED DUE TO G-TUBE LEAK. PATIENT HAS IV 22G IN RIGHT HAND AND LEFT UPPER ARM PICC LINE CURRENTLY INFUSING NORMAL SALINE INFUSING AT 60 ML/HR, PRECEDEX INFUSING AT 0.2 MCG/KG/HR WITH NO INFILTRATION. BARBA CATHETER TO GRAVITY CLEAR YELLOW URINE. LEFT SOFT WRIST RESTRAINTS IN PLACE FOR SAFETY. NO S/SX OF SKIN BREAKDOWN. CONTACT PRECAUTION, HOB 30 DEGREES FOR ASPIRATION PRECAUTION, BED WHEELS LOCKED AND IN LOWEST POSITION.
--- NOTE | 2023-03-09 07:20 | NUR ---
ENDORSED TO AM SHIFT TA MORA FOR CONTINUITY OF CARE.
[2023-03-09] MEDS: DEXMEDETOMIDINE HCL 400 MCG in NACL 0.9% 96 ML IV PRN (08:12)
[2023-03-09] MEDS: AMIODARONE 200 MG TAB PO SCH ×3 (08:23→20:36)
[2023-03-09] MEDS: METOPROLOL 50 MG TAB PO SCH ×3 (08:23→20:36)
[2023-03-09] MEDS: PANTOPRAZOLE 40 MG TABEC PO SCH ×2 (08:23→09:00)
[2023-03-09] MEDS: DIGOXIN 0.25 MG/ML AMP IV SCH (09:00)
[2023-03-09] MEDS: MEROPENEM 1,000 MG in NACL 0.9% 50 ML IV SCH ×2 (09:01→20:35)
[2023-03-09] MEDS: NACL 0.9% 1,000 ML IV SCH ×2 (10:48→18:59)
--- NOTE | 2023-03-09 11:40 | NUR ---
DR DOWNS ROUNDED AT PATIENT BEDSIDE NEW ORDERS RECEIVED
--- NOTE | 2023-03-09 18:20 | NUR ---
PT TRANSFERRED TO 123A. Addendum: 03/09/23 at 1846 by Nely Hooks RN REPORT GIVEN TO TA DEMPSEY.
--- NOTE | 2023-03-09 18:30 | NUR ---
receive patient from intensive care unit [facility] with admitting diagnosis septic shock aox1-2 on rm 123A still on right hand soft restraints . intravenous line on left antecubital with normal saline at 60 ml/hr . intravenous line on right hand saline lock . patient also on perry catheter
--- NOTE | 2023-03-09 19:16 | NUR ---
ENDORSED REPORT TO MATERIAL CUTTER NURSE TA BRIZUELA. FOR CONTINUITY OF CARE.
--- NOTE | 2023-03-09 19:24 | NUR ---
will endorse to jacque shift commander rn for continuity of care .kidney urinary bladder was just done . will start osmolite 1.5 at 30 mls/hr with 150 of water flush every 12 hrs . the plan to wean of feeding tube , ventilator
--- NOTE | 2023-03-09 19:25 | NUR ---
RECEIVED PT FROM MORNING SHIFT NURSE. PT IS AOX1-2, AND BEDBOUND. PT IS ON TRACH TO VENT WITH FI02-24%, RATE OF 16 PEEP OF 5 AND TV OF 400. PT IS ON G-TUBE FEEDING BUT WAITING FOR THE RESULT OF KUB. PT HAS RIGHT HAND GAUGE 20, SALINE LOCK AND PICC LINE 2X LUMEN ON LEFT UPPER ARM RUNNING WITH NS AT 60ML/HR. PT SKIN IS INTACT. NO S/S OF OF RESPIRATORY DISTRESS NOTED. NO S/S OF PAIN AT THIS TIME. ALL SAFETY MEASURES IMPLEMENTED. BED IN LOW POSITION, BED WHEELS ON LOCK AND CALL LIGHT WITHIN REACH.
--- NOTE | 2023-03-09 19:43 | NUR ---
TALKED TO DR. COX AND ORDERED TO CHANGE IV INTO D5W AT 100 AND IF KUB RESULTED START G-TUBE FEEDING WITH OSMOLITE 1.5 RUNNING AT 30ML/HR GOAL IS 50 TO INCREASE 10 EVERY 12 HRS WITH WATER FLUSH OF 300 EVERY 4HRS.
--- NOTE | 2023-03-09 20:40 | NUR ---
ALL SCHEDULED AND PRESCRIBED MEDICATION WAS GIVEN TO PT PER MD ORDER. ALL SAFETY MEASURES IMPLEMENTED. BED IN LOW POSITION, BED WHEELS ON LOCK AND CALL LIGHT WITHIN REACH.
[2023-03-10] VITALS: BP 123/82
[2023-03-10] MEDS: LEVALBUTEROL 1.25 MG/0.5 ML NEBU INH SCH ×4 (00:12→19:46)
[2023-03-10] MEDS: BLOOD GLUCOSE MONITORING 1 DEV DEV FS SCH ×4 (00:25→18:24)
--- NOTE | 2023-03-10 00:25 | NUR ---
PT BLOOD GLUCOSE IS 100. NO INSULIN COVERAGE NEEDED.
--- NOTE | 2023-03-10 02:00 | NUR ---
PT IS SLEEPING. CHEST RISE AND FALL SYMMETRICALLY NOTED. RESPIRATION IS EVEN AND UNLABORED. ALL SAFETY MEASURES IMPLEMENTED. BED IN LOW POSITION, BED WHEELS ON LOCK AND CALL LIGHT WITHIN REACH.
[2023-03-10 04:00] VITALS: BP 121/86
--- NOTE | 2023-03-10 04:00 | NUR ---
MORNING CARE WAS DONE TO PT. CHANGED CHUCKS, LINENS, BLANKET AND GOWN. ORAL CARE WAS ALSO DONE. ALL SAFETY MEASURES IMPLEMENTED. BED IN LOW POSITION, BED WHEELS ON LOCK AND CALL LIGHT WITHIN REACH.
[2023-03-10] MEDS: methylPREDNISolone SS 125 MG/2 ML VIAL IVP SCH ×3 (04:21→21:07)
--- NOTE | 2023-03-10 05:14 | NUR ---
PT BLOOD GLUCOSE IS 118. NO INSULIN COVERAGE NEEDED.
[2023-03-10 06:52] LABS: ANION GAP 11.5 (8-16); CARBON DIOXIDE 27.7 mmol/L (21-32); CREATININE 1.3 mg/dL (0.6-1.3); POTASSIUM 4.2 mmol/L (3.5-5.1)
[2023-03-10 06:58] LABS: MAGNESIUM 2.3 mg/dL (1.8-2.4); PHOSPHORUS 3.8 mg/dL (2.5-4.9)
[2023-03-10 07:00] LABS: HEMATOCRIT 26.4 % (36-52); HEMOGLOBIN 8.1 g/dL (12.0-18.0); LYMPHOCYTES # (AUTO) 0.2 K/uL (2.0-11.5); LYMPHOCYTES % (AUTO) 1.4 % (20.5-51.1); MEAN CORPUSCULAR HEMOGLOBIN 24 pg (27-31); MEAN CORPUSCULAR HGB CONC 31 g/dL (33-37); MEAN CORPUSCULAR VOLUME 77.4 fL (80-94); MONOCYTES # (AUTO) 0.6 K/uL (0.8-1.0); MONOCYTES % (AUTO) 3.9 % (1.7-9.3); NEUTROPHILS # (AUTO) 15.2 K/uL (1.8-7.7); NEUTROPHILS % (AUTO) 94.7 % (42.2-75.2); PLATELET COUNT (AUTO) 281 K/uL (140-450); RED BLOOD CELL COUNT(AUTO) 3.41 MIL/uL (4.20-6.10); RED CELL DISTRIBUTION WIDTH 21.5 % (11.6-13.7)
--- NOTE | 2023-03-10 07:25 | NUR ---
RECEIVED ON A [employer] R860 VENTILATOR PLUGGED INTO RED OUTLET TOLERATING WELL WITHOUT ADVERSE REACTIOSN NOTED TO A SHILEY #7 XLT AIRWAY SECURED WITH A PEPPER TRACH TIE CUFF PRESSURE CHECKED AAS NOTED AMBU BAG AT BEDSIDE LOC AWAKE RESTING COMFORTABLY EQUAL CHEST RISE DEEP TRACHEAL SUCTION FOR LARGE THIN YELLOW SECRERIONS AIRWAY PATENT
--- NOTE | 2023-03-10 07:28 | NUR ---
PT IS STABLE. ENDORSED PT TO MORNING SHIFT NURSE FOR CONTINUITY OF CARE.
[2023-03-10 08:00] VITALS: BP 104/73
--- NOTE | 2023-03-10 10:14 | NUR ---
REVIEWED PREVIOUS VENTILATOR FLOW SHEET CHECKS; INCREASED Vt TO 450 ml ([facility] PBW 450=6ml/kg) AND CHANGED I/TIME TO 0.90 TO MEET PATIENT DEMAND; DECREASE TOTAL RESPIRATORY RATED; MAINTAIN EXPIRATORY TIME OF EQUAL OR GREATER THAN 2.0; FUR BLOWER TO MONITOR; DEEP TRACHEAL SUCTION FOR MODERATE THIN TO FROTHY SEPULVEDA SECRETIONS AIRWAY PATENT Addendum: 03/10/23 at 1057 by Michael Contreras RT REVIEWED CXR ON 03/09 Addendum: 03/10/23 at 1654 by Michael Contreras RT RATED = RATE
[2023-03-10] MEDS: DIGOXIN 0.25 MG/ML AMP IV SCH (11:21)
[2023-03-10] MEDS: PANTOPRAZOLE 40 MG INJ VIAL IVP SCH (11:22)
[2023-03-10] MEDS: MEROPENEM 1,000 MG in NACL 0.9% 50 ML IV SCH ×2 (11:24→21:08)
[2023-03-10] MEDS: AMIODARONE 200 MG TAB PO SCH ×2 (11:26→21:08)
[2023-03-10] MEDS: METOPROLOL 50 MG TAB PO SCH ×2 (11:27→21:07)
[2023-03-10 12:00] VITALS: BP 117/77
--- NOTE | 2023-03-10 15:22 | NUR ---
03/10/23 RD FOLLOW UP COMPLETED PLEASE REFER TO NUTRITION ASSESSMENT UNDER CARE ACTIVITY FOR ESTIMATED NUTRITIONAL NEEDS. 1. RD RECOMMENDS TO CONTINUE WITH OSMOLITE 1.5 @30ML/HR WITH FWF OF 150 Q12H TO GOAL RATE OF 45ML/HR WITH FWF 300ML Q4H TOLERATED. THIS WILL PROVIDE PATIENT WITH 1620KCAL, 67GRAMS OF PROTEIN MEETING AT LEAST 75% OF ESTIMATED NUTRITIONAL NEEDS. 2. MONITOR GI, PO INTAKE, AND NUTRITION RELATED LAB VALUES 3. RD TO FOLLOW-UP 2-3 DAYS, HIGH RISK OSKAR SHEIKH RD
[2023-03-10 16:00] VITALS: BP 132/74
--- NOTE | 2023-03-10 16:05 | NUR ---
EXPIRATORY Vt, TOTAL RR AND I/E IMPROVED; RESTING COMFORTABLY GOOD CHEST RISE DEEP TRAC HEAL SUCTION FOR THIN SEPULVEDA SECRETIONS AIRWAY PATENT
--- NOTE | 2023-03-10 19:38 | NUR ---
ENDORSE PATIENT IN STABLE CONDITION TO PM SHIFT NURSE WHILE PICC JERMAINE SITE INFUSING D5 @100ML/HR. PATIENT ADMIT FOR SEPTIC SHOCK ON VENT (FIO2 24, RATE 16, PEEP 5) FROM [facility] TUBE FEEDING (OSMOLITE 1.5 @40ML/HR W/ FLUSH 300ML Q4HR) STATUS. NURSE CARE FOCUS ON ANTIBIOTIC THERAPY Addendum: 03/11/23 at 1931 by Lottie Raymundo RN ENDORSE PATIENT IN STABLE CONDITION TO PM SHIFT NURSE WHILE PICC JERMAINE SITE INFUSING D5NS @100ML/HR. PATIENT ADMIT FOR SEPTIC SHOCK ON VENT (FIO2 24, RATE 16, PEEP 5); TUBE FEELING HOLD D/T G-TUBE SITE LEAK. NEW OPEN GASTROSTOMY TUBE PLACEMENT CONSENT OBTAIN FROM SPOUSE.
[2023-03-10 20:00] VITALS: BP 117/81
[2023-03-10] MEDS: LORazepam 2 MG/ML VIAL IVP PRN (21:05)
[2023-03-10] MEDS ORDERED: Z-GUARD PASTE TP ONE (21:36)
[2023-03-10] MEDS ORDERED: Z-GUARD PASTE TP PRN (21:45)
[2023-03-11] VITALS: BP 125/71
[2023-03-11] MEDS: BLOOD GLUCOSE MONITORING 1 DEV DEV FS SCH ×4 (00:30→18:13)
[2023-03-11] MEDS: Z-GUARD PASTE TP SCH ×2 (01:00→13:38)
[2023-03-11] MEDS: LEVALBUTEROL 1.25 MG/0.5 ML NEBU INH SCH ×4 (01:03→20:01)
[2023-03-11] MEDS: LORazepam 2 MG/ML VIAL IVP PRN ×2 (01:17→21:44)
[2023-03-11 04:00] VITALS: BP 141/68
[2023-03-11] MEDS: methylPREDNISolone SS 125 MG/2 ML VIAL IVP SCH ×3 (05:25→21:44)
[2023-03-11 05:39] LABS: BASOPHILS % (AUTO) 0.1 % (0.0-2.0); HEMATOCRIT 25.9 % (36-52); LYMPHOCYTES # (AUTO) 0.2 K/uL (2.0-11.5); LYMPHOCYTES % (AUTO) 1.3 % (20.5-51.1); MEAN CORPUSCULAR HEMOGLOBIN 24 pg (27-31); MEAN CORPUSCULAR HGB CONC 31 g/dL (33-37); MONOCYTES # (AUTO) 0.5 K/uL (0.8-1.0); MONOCYTES % (AUTO) 3.6 % (1.7-9.3); NEUTROPHILS # (AUTO) 13.6 K/uL (1.8-7.7); PLATELET COUNT (AUTO) 264 K/uL (140-450); RED BLOOD CELL COUNT(AUTO) 3.36 MIL/uL (4.20-6.10); RED CELL DISTRIBUTION WIDTH 21.8 % (11.6-13.7); WHITE BLOOD COUNT (AUTO) 14.3 K/uL (4.8-10.8)
[2023-03-11 06:04] LABS: CREATININE 1.2 mg/dL (0.6-1.3)
[2023-03-11 06:10] LABS: MAGNESIUM 2.1 mg/dL (1.8-2.4); PHOSPHORUS 3.2 mg/dL (2.5-4.9)
--- NOTE | 2023-03-11 07:38 | NUR ---
RECEIVED ON A [employer] R860 VENTILATOR PLUGGED INTO RED OUTLET TOLERATING WELL WITHOUT COMPLICATIONS NOTED TO A MI XLT #7 TRACH SECURED WITH A PEPPER TRACH TIES CUFF PRESSURE CHECKED NOTED AMBU BAG AT BEDSIDE GOOD CHEST RISE DEEP TRACHEAL SUCTION FOR MODERATE SEMI THICK YELLOW SECRTIONS AIRWAY PATENT SCHEDULED HHN THERAPY NOT GIVEN AT THIS TIME RESPIRATORY DRUG OUT OF STOCK ON MST FLOOR MEDIA CONSULTANT OBTAIN IN ANOTHER AREA IF AVAILABLE AND GIVE AT A LATER TIME
[2023-03-11 08:00] VITALS: BP 123/84
[2023-03-11] MEDS: MEROPENEM 1,000 MG in NACL 0.9% 50 ML IV SCH ×2 (09:12→21:44)
[2023-03-11] MEDS: PANTOPRAZOLE 40 MG INJ VIAL IVP SCH (09:14)
[2023-03-11] MEDS: AMIODARONE 200 MG TAB PO SCH ×2 (09:15→21:45)
[2023-03-11] MEDS: METOPROLOL 50 MG TAB PO SCH ×2 (09:16→21:45)
[2023-03-11] MEDS: DIGOXIN 0.25 MG/ML AMP IV SCH (09:22)
[2023-03-11] MEDS ORDERED: IPRATROPIUM 0.02% 0.5 MG/2.5 ML NEBU INH PRN (09:40)
--- NOTE | 2023-03-11 09:50 | NUR ---
AWAKE PRESENTING WITH INTERMITTENT IRRITABILITY GOOD CHEST RISE DEEP TRACHEAL SUCTION FOR MODERATE THIN YELLOW SECRETINS AIRWAY PATENT
--- NOTE | 2023-03-11 11:48 | NUR ---
RESTING WELL WITHOUT PULMONARY DISTRESS NOTED AIRWAY PATENT
[2023-03-11 12:00] VITALS: BP 137/88
[2023-03-11] MEDS: DEXT 5% / NACL 0.9% 1,000 ML IV SCH ×2 (12:23→22:36)
[2023-03-11] MEDS: IPRATROPIUM 0.02% 0.5 MG/2.5 ML NEBU INH SCH ×2 (13:34→20:01)
--- NOTE | 2023-03-11 13:35 | NUR ---
STABLE EQUAL CHEST RISE NO EVIDENCE FOR RESPIRATORY DISTRESS NOTED DEEP TRACHEAL SUCTION FOR MODERATE THIN YELLOW SECRETIONS AIRWAY PATENT
[2023-03-11 16:00] VITALS: BP 158/67
--- NOTE | 2023-03-11 16:05 | NUR ---
STABLE RESTING WELL NO APPARENT DISTRESS NOTED GOOD CHEST RISE DEEP TRACHEAL SUCTION FOR SMALL THIN YELLOW SECRETIONS AIRWAY PATENT
[2023-03-11 20:00] VITALS: BP 145/70
[2023-03-11] MEDS ORDERED: DEXTROSE 5% 1,000 ML IV SCH (20:45)
[2023-03-12] VITALS: BP 127/88
[2023-03-12] MEDS: Z-GUARD PASTE TP SCH ×2 (01:00→13:00)
[2023-03-12] MEDS: IPRATROPIUM 0.02% 0.5 MG/2.5 ML NEBU INH SCH ×2 (01:09→19:50)
[2023-03-12] MEDS: LEVALBUTEROL 1.25 MG/0.5 ML NEBU INH SCH ×2 (01:09→19:49)
[2023-03-12 04:00] VITALS: BP 139/69
[2023-03-12] MEDS: LORazepam 2 MG/ML VIAL IVP PRN ×2 (04:23→11:40)
[2023-03-12 05:13] LABS: HEMATOCRIT 26.3 % (36-52); HEMOGLOBIN 8.3 g/dL (12.0-18.0); MEAN CORPUSCULAR HEMOGLOBIN 24 pg (27-31); MEAN CORPUSCULAR HGB CONC 32 g/dL (33-37); MEAN CORPUSCULAR VOLUME 77.6 fL (80-94); PLATELET COUNT (AUTO) 240 K/uL (140-450); RED BLOOD CELL COUNT(AUTO) 3.39 MIL/uL (4.20-6.10); RED CELL DISTRIBUTION WIDTH 22.5 % (11.6-13.7); WHITE BLOOD COUNT (AUTO) 13.2 K/uL (4.8-10.8)
[2023-03-12 05:40] LABS: ANION GAP 11.2 (8-16); CARBON DIOXIDE 26.2 mmol/L (21-32); CREATININE 1.1 mg/dL (0.6-1.3); POTASSIUM 4.4 mmol/L (3.5-5.1)
[2023-03-12 05:43] LABS: MAGNESIUM 2.1 mg/dL (1.8-2.4); PHOSPHORUS 3.4 mg/dL (2.5-4.9)
[2023-03-12 05:56] LABS: EOSINOPHILS % (MANUAL) 0 % (0-4); LYMPHOCYTES % (MANUAL) 6 % (20-46); MONOCYTES % (MANUAL) 4 % (5-12)
[2023-03-12 05:57] LABS: BASOPHILS % (MANUAL) 0 % (0-2)
[2023-03-12] MEDS: methylPREDNISolone SS 125 MG/2 ML VIAL IVP SCH (05:58)
[2023-03-12] MEDS: METOPROLOL 50 MG TAB PO SCH ×3 (05:59→20:10)
--- NOTE | 2023-03-12 07:34 | NUR ---
pt awake , track to vent on as ordered. got report from the night nurse.[email or web address]
[2023-03-12 08:00] VITALS: BP 92/52
[2023-03-12] MEDS: BLOOD GLUCOSE MONITORING 1 DEV DEV FS SCH ×4 (08:00→21:00)
[2023-03-12] MEDS: DIGOXIN 0.25 MG TAB PO SCH (08:20)
[2023-03-12] MEDS: predniSONE 20 MG TAB PO SCH (08:20)
[2023-03-12] MEDS: AMIODARONE 200 MG TAB PO SCH ×2 (08:20→20:10)
[2023-03-12] MEDS: PANTOPRAZOLE 40 MG INJ VIAL IVP SCH (08:21)
[2023-03-12] MEDS: MEROPENEM 1,000 MG in NACL 0.9% 50 ML IV SCH ×2 (08:25→20:09)
[2023-03-12] MEDS: DEXT 5% / NACL 0.9% 1,000 ML IV SCH ×2 (08:28→21:00)
--- NOTE | 2023-03-12 11:46 | NUR ---
ATIVAN 1MG GIVEN FROM 2MG DOSE, FOR AGITATION ,RN VERIFIED , THE SCANNER IS AGAIN DID NOT SCAN THE MED MANUAL RX CODE ENTERED.[id number]
[2023-03-12 12:00] VITALS: BP 138/80
--- NOTE | 2023-03-12 13:25 | NUR ---
03/12/23 RD FOLLOW UP COMPLETED PLEASE REFER TO NUTRITION ASSESSMENT UNDER CARE ACTIVITY FOR ESTIMATED NUTRITIONAL NEEDS. 1. RD RECOMMENDS TO INCREASE TUBE FEEDING WITH OSMOLITE 1.5 @ 50ML/HR WITH FWF 300ML Q6H TOLERATED. THIS WILL PROVIDE PATIENT WITH 1800KCAL, 75GRAMS OF PROTEIN MEETING AT LEAST 75% OF ESTIMATED NUTRITIONAL NEEDS. 2. RD WILL MONITOR GI, PO INTAKE, AND NUTRITION RELATED LAB VALUES. 3. RD TO FOLLOW-UP 2-3 DAYS, HIGH RISK OSKAR SHEIKH RD
[2023-03-12 16:00] VITALS: BP 118/56
--- NOTE | 2023-03-12 19:20 | NUR ---
RECEIVED PT FROM MORNING SHIFT NURSE. PT IS AOX1 AND BEDBOUND. PT IS ON TRACH TO VENT WITH FI02-24%, RATE OF 16, PEEP OF 5 AND VT OF 450. PT IS ON G-TUBE RUNNING WITH OSMOLITE 1.5 30ML/HR WITH WATER FLUSH OF 300 EVERY 4 HRS. PT HAS BARBA CATHETER AND HAS PICC LINE 2X LUME ON LEFT UPPER ARM RUNNING WITH D5NS AT 100ML/HER AND SALINE LOCK ON RIGHT HAND GAUGE 20. NO S/S OF PAIN AND NO S/S OF RESPIRATORY DISTRESS NOTED. PT SKIN IS INTACT. ALL SAFETY MEASURES IMPLEMENTED. BED IN LOW POSITION, BED WHEELS ON LOCK AND CALL LIGHT WITHIN REACH.
--- NOTE | 2023-03-12 19:43 | NUR ---
[facility]450,16F, +5, 24%. PT IS ASLEEP AND RESTING WELL. STOMA IS INTACT AND CLEAN AND THERE ARE NO S/S OF RD NOTED. TX WAS GIVEN BUT TERMINATED 5 MIN IN DUE TO ELEVATED PULSE RATE. POST CESSATION PULSE RATE RETURNED TO NORMAL RANGES. WILL MONITOR PT THROUGHOUT REMAINDER OF SHIFT.
[2023-03-12 20:00] VITALS: BP 137/89
--- NOTE | 2023-03-12 20:10 | NUR ---
SCHEDULED AND PRESCRIBED MEDICATION WAS GIVEN TO PT PER MD ORDER EXCEPT HEPARIN DUE TO PT HAS SURGERY MORENO. ALL SAFETY MEASURES IMPLEMENTED. BED IN LOW POSITION, BED WHEELS ON LOCK AND CALL LIGHT WITHIN REACH.
--- NOTE | 2023-03-12 22:00 | NUR ---
BLANKET WAS GIVEN TO PT AND HEART MONITOR BOX AND CORD WAS FIX TO PT. ALL SAFETY MEASURES IMPLEMENTED. BED IN LOW POSITION, BED WHEELS ON LOCK AND CALL LIGHT WITHIN REACH.
[2023-03-13] VITALS (7 sets, daily range): BP systolic 125–155; BP diastolic 63–102
[2023-03-13] MEDS: BLOOD GLUCOSE MONITORING 1 DEV DEV FS SCH ×4 (00:08→17:31)
--- NOTE | 2023-03-13 00:15 | NUR ---
SWAB THE PT FOR COVID DUE TO SURGERY FOR MORENO AT 8AM
[2023-03-13] MEDS: Z-GUARD PASTE TP SCH ×2 (01:00→13:31)
[2023-03-13] MEDS: LEVALBUTEROL 1.25 MG/0.5 ML NEBU INH SCH ×3 (01:42→19:35)
--- NOTE | 2023-03-13 02:00 | NUR ---
PT IS ON SLEEP. CHEST RISE AND FALL SYMMETRICALLY NOTED. RESPIRATION IS EVEN AND UNLABORED. ALL SAFETY MEASURES IMPLEMENTED. BED IN LOW POSITION, BED WHEELS ON LOCK AND CALL LIGHT WITHIN REACH.
[2023-03-13] MEDS: DEXT 5% / NACL 0.9% 1,000 ML IV SCH ×3 (04:32→23:47)
[2023-03-13] MEDS: METOPROLOL 50 MG TAB PO SCH ×3 (04:40→20:08)
--- NOTE | 2023-03-13 04:46 | NUR ---
MORNING CARE WAS DONE TO PT. CHANGED CHUCKS, LINENS AND GOWN. ORAL CARE WAS ALSO DONE TO PT. ALL SAFETY MEASURES IMPLEMENTED. BED IN LOW POSITION, BED WHEELS ON LOCK AND CALL LIGHT WITHIN REACH.
[2023-03-13 05:19] LABS: HEMATOCRIT 27.4 % (36-52); HEMOGLOBIN 8.4 g/dL (12.0-18.0); LYMPHOCYTES # (AUTO) 0.7 K/uL (2.0-11.5); LYMPHOCYTES % (AUTO) 4.8 % (20.5-51.1); MEAN CORPUSCULAR HEMOGLOBIN 24 pg (27-31); MEAN CORPUSCULAR HGB CONC 31 g/dL (33-37); MEAN CORPUSCULAR VOLUME 78.3 fL (80-94); MONOCYTES # (AUTO) 1.5 K/uL (0.8-1.0); MONOCYTES % (AUTO) 11.1 % (1.7-9.3); NEUTROPHILS # (AUTO) 11.4 K/uL (1.8-7.7); NEUTROPHILS % (AUTO) 84.1 % (42.2-75.2); PLATELET COUNT (AUTO) 233 K/uL (140-450); RED CELL DISTRIBUTION WIDTH 21.9 % (11.6-13.7); WHITE BLOOD COUNT (AUTO) 13.6 K/uL (4.8-10.8)
[2023-03-13 05:42] LABS: ANION GAP 9.9 (8-16); CARBON DIOXIDE 27.6 mmol/L (21-32); CREATININE 1.2 mg/dL (0.6-1.3); POTASSIUM 4.5 mmol/L (3.5-5.1)
[2023-03-13 05:44] LABS: MAGNESIUM 2.1 mg/dL (1.8-2.4)
[2023-03-13] MEDS: IPRATROPIUM 0.02% 0.5 MG/2.5 ML NEBU INH SCH ×3 (05:51→19:34)
--- NOTE | 2023-03-13 07:24 | NUR ---
PT IS STABLE. ENDORSED PT TO MORNING SHIFT NURSE FOR CONTINUITY OF CARE.
[2023-03-13] MEDS ORDERED: BUPIVACAINE-MPF/EPI 0.25% 30 ML VIAL INJ ONE (07:30)
[2023-03-13] MEDS ORDERED: LIDOCAINE 1% 500 MG/50 ML VIAL ONE (07:30)
[2023-03-13] MEDS ORDERED: ceFAZolin 2,000 MG VIAL ONE (07:30)
[2023-03-13] MEDS: MEROPENEM 1,000 MG in NACL 0.9% 50 ML IV SCH ×2 (10:06→20:06)
[2023-03-13] MEDS: PANTOPRAZOLE 40 MG INJ VIAL IVP SCH (10:06)
[2023-03-13] MEDS: predniSONE 20 MG TAB PO SCH (10:07)
[2023-03-13] MEDS: DIGOXIN 0.25 MG TAB PO SCH (10:07)
[2023-03-13] MEDS: AMIODARONE 200 MG TAB PO SCH ×2 (10:08→20:08)
--- NOTE | 2023-03-13 17:58 | NUR ---
PT IS STABLE WITH NO APPARENT DISTRESS NOTED. GOOD CHEST NOTED. DEEP TRACHEAL SUCTION FOR MODERATE AMT OF THICK YELLOW/PINK TINGED SECRETIONS. CHANGED HME AND PERFORMED TRACH CARE.
--- NOTE | 2023-03-13 17:59 | NUR ---
AROUND 0800, OR NURSE & ANESTHESIOLOGIST COME TO ROOM 123A DOING PREOPERATION CHECK AND DID NOT PICK PATIENT D/T PATIENT STILL CARDIACALLY NOT STABLE ENCOURAGE FOR ANESTHESIA PROCEDURE. PATIENT'S A. FIB CURRENTLY IS NOT ABLE TO MODULATE BY MEDICATION, AND PATIENT'S HEART RATE ONE MINUTE IS TACHYCARDIA, NEXT MINUTE COULD BE BRADYCARDIA. MEAN WHILE. PATIENT'S BREATH PATTERN REFLEX THE HEART RATE ONE MINUTE VERY FAST & NEXT MOMENT SLOW. PATIENT CURRENT G-TUBE LEAK FROM TUBE ENTER AREA, AND RT ALSO CLEAR SIGNIFICANT AMOUNT TUBE FEEDING FORMULA RESIDUAL FROM TRACH SITE. WILL CONTINUE TO MONITOR Addendum: 03/13/23 at 1914 by Lottie Raymundo RN ENDORSE PATIENT TO PM SHIFT NURSE WHILE PATIENT IN STABLE CONDITION, PIV D5NS INFUSING VIA JERMAINE PICC SITE. PATIENT CURRENTLY STILL HAVE NO TUBE FEEDING
--- NOTE | 2023-03-13 19:05 | NUR ---
RECEIVED PT FROM MORNING SHIFT NURSE. PT IS AOX1 AND BEDBOUND. PT IS ON TRACH TO VENT WITH FI02-24%, RATE OF 16, PEEP OF 5 AND VT OF 450. PT IS ON G-TUBE BUT ON NPO. PT HAS BARBA CATHETER AND HAS PICC LINE 2X LUMEN ON LEFT UPPER ARM RUNNING WITH D5NS AT 100ML/HER AND SALINE LOCK ON RIGHT HAND GAUGE 20. NO S/S OF PAIN AND NO S/S OF RESPIRATORY DISTRESS NOTED. PT SKIN IS INTACT. ALL SAFETY MEASURES IMPLEMENTED. BED IN LOW POSITION, BED WHEELS ON LOCK AND CALL LIGHT WITHIN REACH.
--- NOTE | 2023-03-13 22:00 | NUR ---
REPOSTION THE PT AND WARM BLANKET WAS GIVEN TO PT. ALL SAFETY MEASURES IMPLEMENTED. BED IN LOW POSITION, BED WHEELS ON LOCK AND CALL LIGHT WITHIN REACH.
[2023-03-14] VITALS (8 sets, daily range): BP systolic 141–159; BP diastolic 75–104
[2023-03-14] MEDS: BLOOD GLUCOSE MONITORING 1 DEV DEV FS SCH ×3 (00:18→12:15)
--- NOTE | 2023-03-14 00:18 | NUR ---
PT BLOOD GLUCOSE IS 94. NO INSULIN COVERAGE NEEDED. ALL SAFETY MEASURES IMPLEMENTED. BED IN LOW POSITION, BED WHEELS ON LOCK AND CALL LIGHT WITHIN REACH.
[2023-03-14] MEDS: IPRATROPIUM 0.02% 0.5 MG/2.5 ML NEBU INH SCH ×4 (00:52→19:06)
[2023-03-14] MEDS: LEVALBUTEROL 1.25 MG/0.5 ML NEBU INH SCH ×4 (00:53→19:06)
[2023-03-14] MEDS: Z-GUARD PASTE TP SCH ×2 (01:12→13:58)
[2023-03-14] MEDS: METOPROLOL 50 MG TAB PO SCH ×3 (05:02→20:49)
--- NOTE | 2023-03-14 05:11 | NUR ---
PT BLOOD GLUCOSE IS 82. NO INSULIN COVERAGE NEEDED.
[2023-03-14 05:18] LABS: BASOPHILS % (AUTO) 0.1 % (0.0-2.0); HEMOGLOBIN 8.3 g/dL (12.0-18.0); LYMPHOCYTES # (AUTO) 0.4 K/uL (2.0-11.5); LYMPHOCYTES % (AUTO) 3.9 % (20.5-51.1); MEAN CORPUSCULAR HEMOGLOBIN 24 pg (27-31); MEAN CORPUSCULAR HGB CONC 31 g/dL (33-37); MEAN CORPUSCULAR VOLUME 79.1 fL (80-94); MONOCYTES # (AUTO) 1.3 K/uL (0.8-1.0); MONOCYTES % (AUTO) 12.4 % (1.7-9.3); NEUTROPHILS # (AUTO) 8.8 K/uL (1.8-7.7); NEUTROPHILS % (AUTO) 83.6 % (42.2-75.2); PLATELET COUNT (AUTO) 220 K/uL (140-450); RED BLOOD CELL COUNT(AUTO) 3.42 MIL/uL (4.20-6.10); RED CELL DISTRIBUTION WIDTH 22.2 % (11.6-13.7); WHITE BLOOD COUNT (AUTO) 10.5 K/uL (4.8-10.8)
[2023-03-14 05:34] LABS: CARBON DIOXIDE 25.5 mmol/L (21-32); CREATININE 1.3 mg/dL (0.6-1.3); POTASSIUM 4.5 mmol/L (3.5-5.1)
--- NOTE | 2023-03-14 07:23 | NUR ---
PT IS STABLE. ENDORSED TO MORNING SHIFT NURSE FOR CONTINUITY OF CARE.
--- NOTE | 2023-03-14 07:30 | NUR ---
RECEIVED REPORT FROM CONSUMER SERVICES CONSULTANT NURSE FOR CONTINUITY OF CARE, POC DISCUSSED. PT IS IN BED, TRACH TO VENT. LEFT ARM RESTRAINED, ORDER IN EMAR, RIGHT ARM CONTRACTED. CONNECTED TO PULSE OX, AT 92%. PT NPO DUE TO GTUBE MALFUNCTION, SCHEDULED SURGERY CANCELLED FOR TRANSFER TO HIGH LEVEL OF CARE. BARBA CATH IN PLACE. ALL SAFETY MEASURES IN PLACE.
[2023-03-14] MEDS: AMIODARONE 200 MG TAB PO SCH ×2 (09:00→20:49)
[2023-03-14] MEDS: predniSONE 20 MG TAB PO SCH (09:00)
[2023-03-14] MEDS: DIGOXIN 0.25 MG TAB PO SCH (09:00)
[2023-03-14] MEDS: PANTOPRAZOLE 40 MG INJ VIAL IVP SCH (09:13)
[2023-03-14] MEDS: DEXT 5% / NACL 0.9% 1,000 ML IV SCH ×2 (10:45→19:45)
[2023-03-14] MEDS ORDERED: TPN PER PHARMACY MC PRN (11:55)
[2023-03-14] MEDS ORDERED: DIGO-81 PO (12:02)
[2023-03-14] MEDS ORDERED: PRED20TA5 PO (12:02)
[2023-03-14] MEDS ORDERED: AMIO200T10 PO (12:02)
[2023-03-14 12:28] LABS: MAGNESIUM 2.1 mg/dL (1.8-2.4); PHOSPHORUS 3.3 mg/dL (2.5-4.9)
[2023-03-14] MEDS ORDERED: INSULIN LISPRO SLIDING SCALE 100 UNITS/ML VIAL SUBQ PRN (12:45)
--- NOTE | 2023-03-14 13:00 | NUR ---
PT HAS BEEN CLEANED, NEW LINENS PROVIDED, ZGUARD APPLIED, DIAPER PLACED. STATED PT WILL KEEP BARBA UPON DISCHARGE, CASE MANAGEMENT WORKING ON TRANSFER.
--- NOTE | 2023-03-14 14:20 | NUR ---
OH AT BEDSIDE
--- NOTE | 2023-03-14 15:02 | NUR ---
03/14/23 RD FOLLOW UP COMPLETED PLEASE REFER TO NUTRITION ASSESSMENT UNDER CARE ACTIVITY FOR ESTIMATED NUTRITIONAL NEEDS. 1. CONTINUE ON NPO DIET TOLERATED AND WHEN MEDICALLY APPROPRIATE ADVANCE BACK TO TUBE FEEDING OF OSMOLITE 1.5 @ 50ML/HR WITH FWF 300ML Q6H TOLERATED. THIS WILL PROVIDE PATIENT WITH 1800KCAL, 75GRAMS OF PROTEIN MEETING AT LEAST 75% OF ESTIMATED NUTRITIONAL NEEDS. 2. MONITOR GI, PO INTAKE, AND NUTRITION RELATED LAB VALUES. 3. RD TO FOLLOW-UP 2-3 DAYS, HIGH RISK OSKAR SHEIKH RD
[2023-03-14] MEDS: BLOOD GLUCOSE MONITORING 1 DEV DEV MC SCH ×2 (17:29→23:48)
--- NOTE | 2023-03-14 17:35 | NUR ---
PT REPOSITIONED, RT AT BEDSIDE. ALL SAFETY MEASURES IN PLACE.
--- NOTE | 2023-03-14 19:30 | NUR ---
RECEIVED REPORT FROM DAY SHIFT RN FOR CONTINUITY OF CARE. PT IS NPO. VENT SETTINGS: 28%,450,16,5. SATING 98%. PT HAS FC DRAINING TO GRAVITY. PT HAS JERMAINE PICC AND RIGHT HAND 20 GAUGE. PT IS NPO DUE TO GTUBE MALFUNCTION. PT IS STARTING TPN TODAY AT 1999.
[2023-03-14] MEDS ORDERED: [UNRECOGNIZED DRUG - OTHER] IV SCH ×4 (20:00)
[2023-03-14] MEDS ORDERED: MULTIVITAMIN IV SCH ×4 (20:00)
[2023-03-14] MEDS ORDERED: DEXTROSE IV SCH ×4 (20:00)
[2023-03-14] MEDS ORDERED: AMINO ACIDS IV SCH ×4 (20:00)
--- NOTE | 2023-03-14 20:50 | NUR ---
UNABLE TO GIVE PO MEDICATION. PT IS NPO. HEPARIN GIVEN AND TPN STARTED.
--- NOTE | 2023-03-14 22:49 | NUR ---
PATIENT IS LAYING IN SEMI FOWLERS POSITION, HOB ELEVATED, AIRWAY PATENT AND SECURE. PATIENT IS AWAKE AND RESTLESS, RR HAS INCREASED, SPO2 @ 89%. PREOXYGENATED PT @ 100% FIO2 AND DEEP TRACHEAL SXN FOR SMALL PALE YELLOW THICK SECRETIONS, INCREASED FIO2 TO 40% AND DECREASED iTIME TO .80 SEC AT THIS TIME. CURRENTLY SPO2 @ 97%, RR 26BPM. NO SIGNS OF RESPIRATORY DISTRESS NOTED AT THIS TIME. RN IS AWARE OF CHANGES. RT ROSITA WILL CONTINUE TO MONITOR.
[2023-03-15] VITALS: BP 142/106
[2023-03-15] MEDS: LEVALBUTEROL 1.25 MG/0.5 ML NEBU INH SCH ×4 (00:04→19:02)
[2023-03-15] MEDS: IPRATROPIUM 0.02% 0.5 MG/2.5 ML NEBU INH SCH ×4 (00:05→19:02)
--- NOTE | 2023-03-15 01:40 | NUR ---
OBSERVED PT. PT IS AWAKE RESTING COMFORTABLY IN BED. NOTICED SOME SECRETION COMING OUT OF PT MOUTH. SUCTION PT MOUTH. PT DENIES ANY PAIN. PT SHOOK HEAD TO THE SIDE. PT IS SATING 97%. NOT IN ANY DISTRESS. WILL CONTINUE TO MONITOR THE PT.
[2023-03-15] MEDS: Z-GUARD PASTE TP SCH ×2 (01:41→13:59)
[2023-03-15 04:00] VITALS: BP 147/108
[2023-03-15] MEDS: METOPROLOL 50 MG TAB PO SCH ×2 (05:00→13:00)
[2023-03-15] MEDS: BLOOD GLUCOSE MONITORING 1 DEV DEV MC SCH ×3 (05:28→19:00)
[2023-03-15 05:37] LABS: ANION GAP 11.9 (8-16); CARBON DIOXIDE 25.4 mmol/L (21-32); CREATININE 1.2 mg/dL (0.6-1.3); PHOSPHORUS 2.8 mg/dL (2.5-4.9); POTASSIUM 4.3 mmol/L (3.5-5.1)
[2023-03-15 05:44] LABS: ALBUMIN 2.3 g/dL (3.4-5.0); BILIRUBIN,DIRECT 0.8 mg/dL (0.0-0.3); TOTAL BILIRUBIN 1.4 mg/dL (0.0-1.0)
--- NOTE | 2023-03-15 07:06 | NUR ---
ENDORSED PT TO DAY SHIFT SHIFT RN FOR CONTINUITY OF CARE PT IS STABLE.
--- NOTE | 2023-03-15 07:10 | NUR ---
RECEIVED BEDSIDE REPORT FROM NIGHTSHIFT NURSE. PT AWAKE IN BED, NO SIGNS OF DISTRESS/PAIN. WILL CONTINUE WITH CARE.
--- NOTE | 2023-03-15 07:30 | NUR ---
PT BP AND HR HIGH THROUGHOUT DAY. ATTENDING MD AND WORKFORCE MANAGEMENT CONSULTANT AWARE. GTUBE NOT WORKING, PO BP MEDS HELD. ASKED MD TO CHANGE PO BP MEDS TO IV. ORDERS CHANGED. IV BP MEDS ADMINISTERED, PT BP AND HR DECREASED BUT STILL SLIGHTLY HIGH. PT STABLE AND HAS NO SIGNS OF DISTRESS AT THIS TIME, WILL ENDORSE TO NIGHTSHIFT NURSE FOR CONTINUITY OF CARE.
[2023-03-15 08:00] VITALS: BP 159/101
[2023-03-15] MEDS: predniSONE 20 MG TAB PO SCH (09:00)
[2023-03-15] MEDS: DIGOXIN 0.25 MG TAB PO SCH (09:00)
[2023-03-15] MEDS: AMIODARONE 200 MG TAB PO SCH (09:00)
[2023-03-15] MEDS: PANTOPRAZOLE 40 MG INJ VIAL IVP SCH (10:12)
[2023-03-15 12:00] VITALS: BP 173/98
[2023-03-15] MEDS ORDERED: hydrALAZINE 20 MG/ML VIAL IVP PRN (13:50)
[2023-03-15] MEDS ORDERED: hydrALAZINE 20 MG/ML VIAL IVP SCH (13:50)
--- NOTE | 2023-03-15 15:25 | NUR ---
FNS CONSULT ON FOOD/DRUG INTERACTION RECEIVED ON 03/15/23. PATIENT WAS SEEN YESTERDAY FOR FOLLOW UP. ON CURRENT TPN PATIENT WILL RECEIVE 850KCALS CHO ON 500ML AT 50% AND 1190KCALS CHO ON 700ML. PATIENT WILL RECEIVE 170KCALS PRO (42.5GRAMS) AT 500ML AT 8.5% AND 238KCALS OF PROTEIN (59.4GRMS) AT 700ML. PATIENT WILL RECEIVE 250GRMS OF FAT AT 500ML AT 20%. NEXT FOLLOW UP FOR PATIENT WILL BE WITHIN 3 DAYS.
[2023-03-15 16:00] VITALS: BP 143/101
[2023-03-15] MEDS: LORazepam 2 MG/ML VIAL IVP PRN (16:23)
[2023-03-15] MEDS ORDERED: AMIODARONE 450 MG in DEXTROSE 5% 250 ML IV SCH (17:50)
[2023-03-15] MEDS ORDERED: DIGOXIN 0.25 MG/ML AMP IV SCH (18:00)
[2023-03-15] MEDS ORDERED: AMIODARONE 150 MG in DEXTROSE 5% 100 ML IV SCH (18:15)
[2023-03-15] MEDS: METOPROLOL 5 MG/5 ML VIAL IV SCH (18:16)
--- NOTE | 2023-03-15 19:02 | NUR ---
PT BP AND HR WERE ELEVATED. MEDS HAD BEEN HELP BECAUSE GTUBE NOT AVAILABLE. MEDS CHANGED TO IV. WITHIN 10 MINUTES OF ADMINISTRATION HR DROPPED TO NORMAL LEVELS. SUCTIONED MODERATE AMOUNT OF THICK BLOOD TINGED SECRETIONS. NO DISTRESS NOTED. WILL CONTINUE TO MONITOR PT.
--- NOTE | 2023-03-15 19:10 | NUR ---
HAND-OFF REPORT RECEIVED FROM CASSIE CHAPPELL FOLLOWING BEDSIDE ROUNDS. ENDORSED: HYPERTENSIVE 187/73. HYDRALAZINE GIVEN IVP. CONT TO MONITOR.
--- NOTE | 2023-03-15 19:45 | NUR ---
HAND-OFF REPORT RECEIVED FROM MARTÍN CHAPPELL FOLLOWING BEDSIDE ROUNDS. RECEIVED 62 YO BLACK MALE PRESENTED WITH SOB AND PNA; DX: SEPTIC CHOCK 2ND TO PNA; HX: CVA WITH RIGHT SIDED WEAKNESS, TRACH TO VENT, AFIB AND HTN; TPN TO SCARLETT PICC LINE DL CATHETER @ 70 ML/HR; CONTACT ISOLATION FOR ESBL IN URINE, TRACH TO VENT SETTINGS: FI02=28%, TIDAL KCSSZK=905, RATE=16 AND PEEP=5. RECEIVED A/OX1, AFIB ON MONITOR;BARBA CATH TO GRAVITY FLOW DARK JOSE RAUL COLORED CLEAR URINE. REPORTED RIGHT HAND 20 GA NOT BEING USED. NOTED THICK WHITE [place] DRAINAGE AROUND GTUBE SITE AND KINSEY UNDRESSED.ALL EXTREMITIES ELEVATED ON PILLOWS. MONITOR AND TURN Q2 PROVIDE COMFORT AND STIMULATION. NO ACUTE DISTRESS.
[2023-03-15 20:00] VITALS: BP 150/90
[2023-03-15] MEDS ORDERED: MULTIVITAMIN IV SCH ×4 (20:00)
[2023-03-15] MEDS ORDERED: DEXTROSE IV SCH ×4 (20:00)
[2023-03-15] MEDS ORDERED: AMINO ACIDS IV SCH ×4 (20:00)
[2023-03-15] MEDS ORDERED: [UNRECOGNIZED DRUG - OTHER] IV SCH ×4 (20:00)
--- NOTE | 2023-03-15 21:30 | NUR ---
GTUBE NOT BEING USED. CLEANSED WITH NS, DRESSED. UNABLE TO FLUSH. NO TAPE USED NEAR SITE. ABD SOFT. REPORTED ATIVAN GIVEN ON PRIIOR SHIFT. PT REMAINS CALM. IV B/P MEDS NOW AVAILABLE PRN FOR HTN
[2023-03-16] VITALS (8 sets, daily range): BP systolic 146–187; BP diastolic 55–101
--- NOTE | 2023-03-16 | NUR ---
SUCTION AND PO CARE. PT DURGA WELL. OFFERS TO OPEN MOUTH WIDE FOR PO CARE. BEAUTIFUL TEETH! HE HAS PRESERVED THEM WELL.
[2023-03-16] MEDS: METOPROLOL 5 MG/5 ML VIAL IV SCH ×5 (00:33→23:16)
[2023-03-16] MEDS: BLOOD GLUCOSE MONITORING 1 DEV DEV MC SCH ×5 (00:39→23:36)
[2023-03-16] MEDS: Z-GUARD PASTE TP SCH ×2 (01:00→12:41)
[2023-03-16] MEDS: IPRATROPIUM 0.02% 0.5 MG/2.5 ML NEBU INH SCH ×4 (01:11→19:00)
[2023-03-16] MEDS: LEVALBUTEROL 1.25 MG/0.5 ML NEBU INH SCH ×4 (01:12→19:00)
--- NOTE | 2023-03-16 04:45 | NUR ---
PT SEEMS A LITTLE CALMER AND VITALS ARE STABLE. CHANGED SUCTION MEHTA AND HME. PT STOMA WAS CLEAN, NO REDNESS PRESENT. SUCTIONED MODERATE AMOUNT OF THICK WHITE/PINK TINGED SECRETIONS. WILL CONTINUE TO MONITOR PT.
[2023-03-16 05:32] LABS: MAGNESIUM 2.2 mg/dL (1.8-2.4); PHOSPHORUS 3.6 mg/dL (2.5-4.9)
[2023-03-16 05:52] LABS: ALBUMIN 2.4 g/dL (3.4-5.0); ANION GAP 10.6 (8-16); CARBON DIOXIDE 27.3 mmol/L (21-32); CREATININE 1.1 mg/dL (0.6-1.3); POTASSIUM 3.9 mmol/L (3.5-5.1); TOTAL BILIRUBIN 1.7 mg/dL (0.0-1.0)
--- NOTE | 2023-03-16 07:30 | NUR ---
RECEIVED REPORT FROM HAND SIGN WRITER NURSE FOR CONTINUITY OF CARE, POC DISCUSSED. PT IS TRACH TO VENT, RT AT BEDSIDE. NO ACUTE S/S OF DISTRESS, VITAL SIGNS OBTAINED FROM COKE STILL CLEANER REVIEWED. WNLALL SAFETY MEASURES IN PLACE.
--- NOTE | 2023-03-16 07:30 | NUR ---
HAND-OFF REPORT TO ONCOMING NURSE CASSIE RN FOR CONTINUITY OF CARE. TRACH TO VENT CONT'D WITH SETTINGS UNCHANGED. TPN @ 70 ML/H RUNNING INFUSING WELL. REMAINS NPO. GTUBE NOT IN COMMISSION YET REMAINS IN PLACE AND CLAMPED. BLOOD PRESSURE MEDS NOW AVAIL. VIA IV. PRN AND ROUTINE. ALL SAFETY MEASURES PLACE. RELINQUISHED CARE OF PT AT THIS TIME. PT REMAINS AND TRACKS OCCASIONALLY.
[2023-03-16] MEDS: predniSONE 20 MG TAB PO SCH (08:59)
[2023-03-16] MEDS: PANTOPRAZOLE 40 MG INJ VIAL IVP SCH (09:09)
[2023-03-16] MEDS: DIGOXIN 0.25 MG/ML AMP IV SCH (09:15)
--- NOTE | 2023-03-16 13:20 | NUR ---
RT AT BEDSIDE
[2023-03-16] MEDS: hydrALAZINE 20 MG/ML VIAL IVP PRN (18:54)
[2023-03-16] MEDS: AMINO ACIDS IV SCH ×4 (20:00)
[2023-03-16] MEDS: DEXTROSE IV SCH ×4 (20:00)
[2023-03-16] MEDS: [UNRECOGNIZED DRUG - OTHER] IV SCH ×4 (20:00)
[2023-03-16] MEDS: MULTIVITAMIN IV SCH ×4 (20:00)
--- NOTE | 2023-03-16 23:16 | NUR ---
BP= 187/73 HR=95. LOPRESSOR 5 MG IVP JERMAINE PICC, CONT TO MONITOR.
--- NOTE | 2023-03-16 23:29 | NUR ---
15 MIN POST (LOPRESSOR 5MG IVP) B/P= 164/92 HR 83
[2023-03-17] VITALS (8 sets, daily range): BP systolic 105–198; BP diastolic 55–99
[2023-03-17] MEDS: Z-GUARD PASTE TP SCH ×2 (01:00→12:55)
[2023-03-17] MEDS: IPRATROPIUM 0.02% 0.5 MG/2.5 ML NEBU INH SCH ×2 (01:00→07:33)
[2023-03-17] MEDS: LEVALBUTEROL 1.25 MG/0.5 ML NEBU INH SCH ×2 (01:00→07:00)
[2023-03-17] MEDS: METOPROLOL 5 MG/5 ML VIAL IV SCH ×4 (05:38→23:32)
[2023-03-17] MEDS: BLOOD GLUCOSE MONITORING 1 DEV DEV MC SCH ×3 (05:44→18:10)
--- NOTE | 2023-03-17 06:00 | NUR ---
IV PUSH LOPRESSOR 5 MG FOR HYPERTENTION. 179/86 HR 101.. CONT TO MONITOR EFFECT. WILL ENDORSE TO A.M. NURSE. BED BATH COMPLETED. PT RESPONDING WITH A SMILE, EVEN ALLOW ORAL CARE. SMILE AND BRIGHT EYES SHOWS UNDERSTANDING. CENTRAL LINE DRESS CHANGED. SITE BENIGN. RELINQUISHED CARE OF PT AT THIS TIME. Addendum: 03/17/23 at 0940 by Agency 08 TA CHAPPELL RELINQUISHED CARE NOT UNTIL 0008
[2023-03-17 06:58] LABS: PHOSPHORUS 2.2 mg/dL (2.5-4.9)
[2023-03-17 06:59] LABS: CARBON DIOXIDE 28.1 mmol/L (21-32); POTASSIUM 4.1 mmol/L (3.5-5.1)
--- NOTE | 2023-03-17 07:30 | NUR ---
RECEIVED REPORT FROM CARPENTER PACKING NURSE FOR CONTINUITY OF CARE, POC DISCUSSED. NIGHT EVENTS COVERED. PT HYPERTENSIVE, WILL MEDICATE PER MD ORDER. RT AT BEDSIDE. ALL SAFETY MEASURES IN PLACE.
--- NOTE | 2023-03-17 07:30 | NUR ---
RECEIVED PT ON PRVC 450,16,+5, 28%. VENT WHEELS ARE LOCKED, PLUGGED INTO RED OUTLET, AMBUBAG AT BEDSIDE, ALARMS ARE SET AND AUDIBLE. SATURATION 98%, COARSE BREATH SOUNDS, SUCTIONED OUT MODERATE AMOUNT OF PINK TINGED SECRETIONS. NO DISTRESS NOTED. WILL CONTINUE TO MONITOR PATIENT.
--- NOTE | 2023-03-17 07:53 | NUR ---
PAGED THE DR FOR NEW ORDER OF CBC DUE TO LAST ON BEING ON 03/14/23, PENDING RESPONSE.
[2023-03-17] MEDS: hydrALAZINE 20 MG/ML VIAL IVP PRN (08:07)
[2023-03-17] MEDS: PANTOPRAZOLE 40 MG INJ VIAL IVP SCH (08:07)
[2023-03-17] MEDS: DIGOXIN 0.25 MG/ML AMP IV SCH (08:08)
[2023-03-17 09:06] LABS: EOSINOPHILS % (AUTO) 0.2 % (0.0-4.0); HEMATOCRIT 28.3 % (36-52); HEMOGLOBIN 8.6 g/dL (12.0-18.0); LYMPHOCYTES # (AUTO) 0.3 K/uL (2.0-11.5); LYMPHOCYTES % (AUTO) 2.4 % (20.5-51.1); MEAN CORPUSCULAR HEMOGLOBIN 24 pg (27-31); MEAN CORPUSCULAR HGB CONC 30 g/dL (33-37); MEAN CORPUSCULAR VOLUME 79.3 fL (80-94); MONOCYTES # (AUTO) 1.1 K/uL (0.8-1.0); MONOCYTES % (AUTO) 9.3 % (1.7-9.3); NEUTROPHILS # (AUTO) 10.3 K/uL (1.8-7.7); NEUTROPHILS % (AUTO) 88.1 % (42.2-75.2); PLATELET COUNT (AUTO) 162 K/uL (140-450); RED BLOOD CELL COUNT(AUTO) 3.57 MIL/uL (4.20-6.10); RED CELL DISTRIBUTION WIDTH 24.9 % (11.6-13.7); WHITE BLOOD COUNT (AUTO) 11.7 K/uL (4.8-10.8)
[2023-03-17] MEDS: LORazepam 2 MG/ML VIAL IVP PRN ×2 (09:17→14:56)
[2023-03-17] MEDS ORDERED: cloNIDine-TTS1 0.1 MG/24 HR 1 EA PATCH TD SCH (09:45)
--- NOTE | 2023-03-17 09:48 | NUR ---
DR ALVES AT BEDSIDE, DISCUSSING PTS UNCONTROLLED BLOOD PRESSURE, ALL QUESTIONS ANSWERED, TORB RECEIVED AND PLACED.
[2023-03-17] MEDS: hydrALAZINE 20 MG/ML VIAL IVP SCH ×2 (11:26→18:00)
[2023-03-17] MEDS ORDERED: ALBUTEROL SULFATE/IPRATROPIU 3 ML SOL IH PRN (12:55)
[2023-03-17] MEDS: ALBUTEROL SULFATE/IPRATROPIU 3 ML SOL IH SCH ×2 (13:01→19:45)
--- NOTE | 2023-03-17 15:52 | NUR ---
CALLED TO [facility]ESIDE FOR RESPIRATORY DISTRESS. PT HAD ELEVATED BLOOD PRESSURE. SUCTIONED OUT MODERATE AMOUNTS OF THICK PALE YELLOW SPUTUM. SATURATION 97% ON 28% FI02. CHEST XRAY ORDERED, AND SPUTUM CULTURE WAS ORDERED. PT RESTING. WILL CONTINUE TO MONITOR. I WALKED SPUTUM CULTURE TO LAB.
--- NOTE | 2023-03-17 15:52 | NUR ---
CLEARING HOUSE CLERK NOTIFIED RN OF BLOOD PRESSURE DIASTOLIC BEING LOW. REASSESSED. . RT PAGED DUE TO APPEARING TO BE IN RESPIRATORY DISTRESS, SUCTIONING COMPLETED WITH NO RESOLUTION. RT AT BEDSIDE, RECOMMENDING CXR. PAGED MD AND RECEIVED ORDER, ALSO ORDER FOR SPUTUM CULTURE.
--- NOTE | 2023-03-17 15:59 | NUR ---
03/17/23 RD FOLLOW UP COMPLETED.PLEASE REFER TO NUTRITION ASSESSMENT UNDER CARE ACTIVITY FOR ESTIMATED NUTRITIONAL NEEDS. 1. CONTINUE ON NPO DIET TOLERATED AND WHEN MEDICALLY APPROPRIATE ADVANCE BACK TO TUBE FEEDING OF OSMOLITE 1.5 @ 50ML/HR WITH FWF 300 ML Q6H RECOMMENDED BY RD 03/17/23. THIS WILL PROVIDE PATIENT WITH 1800KCAL, 75GRAMS OF PROTEIN MEETING AT LEAST 75% OF ESTIMATED NUTRITIONAL NEEDS. 2. MONITOR GI SYMPTOMS AND NUTRITION RELATED LAB VALUES. 3. RD TO FOLLOW-UP IN 2-3 DAYS PATIENT IS HIGH RISK. GABBI MONTE RD
--- NOTE | 2023-03-17 17:07 | NUR ---
CALLED DR. WILSON IN REGARDS TO PATIENTS CHEST XRAY. WAITING FOR CALL BACK ON WHETHER WE NEED TO ADD DIFFERENT MODALITIES OF THERAPY. CURRENTLY WAITING FOR CALL BACK.
--- NOTE | 2023-03-17 18:52 | NUR ---
REASSESSED BLOOD PRESSURE AFTER BP MEDICATION ADMINISTERED. NOW READING 143/62, HEART RATE 76. SUCTIONING COMPLETED. ALL SAFETY MEASURES IN PLACE
--- NOTE | 2023-03-17 19:30 | NUR ---
HAND-OFF REPORT RECEIVED FROM CASSIE CHAPPELL. ENDORSED: CHANGE IN B/P MEDS NOTING HYDRALAZINE IS NOW SCHEDULED ALONG WITH LOPRESSOR DUE TO PERSISTENT HIGH PRESSURES INSPITE OF THEM BEING GIVEN PRIOR BUT AT SEPARATE TIMES THE HYDRALAZINE WAS ORIGINALLY PRN ONLY. ALSO CLONIDINE PATCH TO JERMAINE TO BE LEFT IN PLACE AND CHANGED ONLY ONCE PER WEEK ON MONDAYS. ATVAN GIVEN TWICE. CHANGE IN DIFFICULTY BREATHING DR TEJADA NOTIFIED, ORDERED STAT XRAY REVEALED WORSENING R PULMONARY STATUS. PT RECEIVED RESTING IN BED SLEEPING. CONT TRACH TO VENT WITH SETTINGS UNCHANGED. BARBA TO GRAVITY FLOW AND TPN RATE REMAINS AT.
[2023-03-17] MEDS: [UNRECOGNIZED DRUG - OTHER] IV SCH ×4 (20:33)
[2023-03-17] MEDS: AMINO ACIDS IV SCH ×4 (20:33)
[2023-03-17] MEDS: DEXTROSE IV SCH ×4 (20:33)
[2023-03-17] MEDS: MULTIVITAMIN IV SCH ×4 (20:33)
[2023-03-18] VITALS: BP 151/44
[2023-03-18] MEDS: ALBUTEROL SULFATE/IPRATROPIU 3 ML SOL IH SCH ×3 (00:40→13:27)
[2023-03-18] MEDS: Z-GUARD PASTE TP SCH ×2 (01:29→13:07)
[2023-03-18] MEDS: LORazepam 2 MG/ML VIAL IVP PRN (01:37)
[2023-03-18 05:41] LABS: ANION GAP 6.6 (8-16); CARBON DIOXIDE 29.3 mmol/L (21-32); CREATININE 0.8 mg/dL (0.6-1.3); POTASSIUM 4.9 mmol/L (3.5-5.1)
--- NOTE | 2023-03-18 05:54 | NUR ---
CRITICAL LAB: GLUCOSE 612/BECKY REPORTING FROM LAB.
[2023-03-18] MEDS: hydrALAZINE 20 MG/ML VIAL IVP SCH ×3 (06:00→12:35)
[2023-03-18] MEDS: METOPROLOL 5 MG/5 ML VIAL IV SCH ×2 (06:00→12:34)
--- NOTE | 2023-03-18 06:00 | NUR ---
NOTE EMAR AND EKG'S: THIS SHIFT INTENTIONS WERE TO GIVE HYDRALAZINE ALONG WITH LOPRESSOR ORDERED. INSTEAD OF GIVING BOTH SIMULTANEOUSLY I THOUGHT IT BETTER TO GIVE THE LOPRESSOR THEN ASSESS IT'S EFFECT WITHIN A SHORT PERIOD AND PROCEED WITH THE HYDRALAZINE NEEDED. IT TURNS OUT,LOPRESSOR WAS ONLY GIVEN ONCE AND HELD ONCE.THE HYDRALAZINE WAS HELD TWICE AND NEVER GIVEN. THE PATIET'S OVERALL TREND OF HIS HEART RATE WAS FROM 95 AT THE BEGINNING OF THE SHIFT TO 59 AT THE END OF THE SHIFT WITH SOME MOMENTS OF UNSUSTAINED RATES IN THE LOW 43. WILL ENDORSE TO ONCOMING NURSE. BLOOD PRESSURE AT BEGINNING OF SHIFT 138/55, MID SHIFT 151/44 WITH LOPRESSOR BRINGING IT DOWN TO 130/67 AND AT SHIFTS END B/P WA 137/74. RHYTHM THRU OUT WAS AFIB WITH BBB.
[2023-03-18] MEDS: BLOOD GLUCOSE MONITORING 1 DEV DEV MC SCH ×3 (06:33→12:31)
--- NOTE | 2023-03-18 07:00 | NUR ---
RUPERTO SIMMS NOTIFIED OF 612 GLUCOSE @ 0607 , NO NEW ORDERED/ JUST FOLLOW S/S. INFORMED S/S ONLY WENT TO 400 AND ALSO MADE AWARE POC READING ONLY 109. DID A CHECK OF GLUCOSE THIS TIME NOT ONLY SHUTTING OFF TPN BUT ALSO WAITING A BIT AND FLUSHING VERY WELL AND BEFORE DRAWING FROM OPPOSITE LUMEN R
[2023-03-18 07:21] LABS: ANION GAP 7.7 (8-16); CREATININE 0.8 mg/dL (0.6-1.3); POTASSIUM 3.7 mmol/L (3.5-5.1)
--- NOTE | 2023-03-18 07:27 | NUR ---
THE RESULT OF GLUCOSE IN BMP THIS AM WAS 612.BUT FINGER STICK WAS 109.ORDERED ANOTHER BMP AND RESULT CAME BACK OF GLUCOSE 100.TEXTED DR BARRETO ABOUT NEW RESULT.
--- NOTE | 2023-03-18 07:30 | NUR ---
BLOOD GLUCOSE RE-CHECKED AND RESULTS WERE 100. MD HICKEY NOTIFIED BY CHARGE NURSE LUIS. ENDORSED TO PARUL CHAPPELL BLOOD GLUCOSE RESULTS AND BLOOD PRESSURE MEDS WERE HELD CITED ABOVE. RELINQUISHED CARE OF PATIENT AT THIS TIME.
[2023-03-18 08:00] VITALS: BP 128/77
[2023-03-18 08:58] LABS: MAGNESIUM 2.1 mg/dL (1.8-2.4); PHOSPHORUS 4.1 mg/dL (2.5-4.9)
[2023-03-18] MEDS ORDERED: FUROSEMIDE 40 MG/4 ML VIAL IVP SCH (09:00)
[2023-03-18] MEDS: PANTOPRAZOLE 40 MG INJ VIAL IVP SCH (10:40)
[2023-03-18] MEDS: DIGOXIN 0.25 MG/ML AMP IV SCH (10:46)
[2023-03-18 12:00] VITALS: BP 155/41
[2023-03-18 13:34] VITALS: BP 146/42
--- NOTE | 2023-03-18 16:11 | NUR ---
DISCHARGE PATIENT IN STABLE CONDITION TO [facility] PER PCP ORDER. PATIENT CARE ENDORSE TO [facility] IN [facility], AROUND 1600, THREE [facility] EMT HERE AND ACIDIZER [id number] PATIENT FOR [facility] WITH PICC AT [facility] DOUBLE LUMEN FOR TPN THERAPY D/T PATIENT'S G-TUBE STILL LEAK. TEL MONITOR, PIV ACCESS, AND WRIST BAND REMOVE PRIOR PATIENT BE TRANSFER. BARBA, PICC, AND G-TUBE STILL IN PLACE FOR CONTINUE CARE NEED
[2023-03-18] MEDS ORDERED: MULTIVITAMIN IV SCH ×3 (20:00)
[2023-03-18] MEDS ORDERED: DEXTROSE IV SCH ×3 (20:00)
[2023-03-18] MEDS ORDERED: AMINO ACIDS 8.5% IV SCH ×3 (20:00)
== END 2023-03-18 16:10 | DRG 870 ==
LOC: MED 19:43 → MTU 22:31 → MIC 22:42 → MTU 03-09 18:15
PROVIDERS: ADMIT Student in an Organized Health Care Education/Training Program; ATTEND Student in an Organized Health Care Education/Training Program
PROC: 5A1955Z Respiratory Ventilation, Greater than 96 Consecutive Hours (ICD-10-PCS; principal; 2023-03-02)
PROC: 5A12012 Performance of Cardiac Output, Single, Manual (ICD-10-PCS; 2023-03-03)
DX: A41.9 Sepsis, unspecified organism (principal); R65.21 Severe sepsis with septic shock; J96.21 Acute and chronic respiratory failure with hypoxia; J15.1 Pneumonia due to Pseudomonas; J15.0 Pneumonia due to Klebsiella pneumoniae; I21.A1 Myocardial infarction type 2; N17.0 Acute kidney failure with tubular necrosis; G93.41 Metabolic encephalopathy; I50.23 Acute on chronic systolic (congestive) heart failure; I46.9 Cardiac arrest, cause unspecified; E43 Unspecified severe protein-calorie malnutrition; R53.2 Functional quadriplegia; J69.0 Pneumonitis due to inhalation of food and vomit; Z16.12 Extended spectrum beta lactamase (ESBL) resistance; K94.23 Gastrostomy malfunction; N39.0 Urinary tract infection, site not specified; I48.91 Unspecified atrial fibrillation; E87.6 Hypokalemia; E87.5 Hyperkalemia; I11.0 Hypertensive heart disease with heart failure; D63.8 Anemia in other chronic diseases classified elsewhere; B96.20 Unspecified Escherichia coli [E. coli] as the cause of diseases classified elsewhere; Z20.822 Contact with and (suspected) exposure to COVID-19; Z86.73 Personal history of transient ischemic attack (TIA), and cerebral infarction without residual deficits; Z68.23 Body mass index [BMI] 23.0-23.9, adult
CPT/HCPCS: 36415; 36600; 71045; 74018; 74150; 80048; 80053; 80076; 80162; 80202; 81003; 82803; 82948; 83605; 83735; 83880; 84100; 84478; 84484; 85025; 85379; 85384; 85610; 85730; 87040; 87070; 87081; 87086; 87205; 89220; 93005; 94002; 94003; 94640; 96374; 99291; A9153; C9113; J0171; J0282; J0360; J0456; J0696; J1160; J1644; J1815; J1940; J2001; J2060; J2185; J2405; J2543; J2930; J3370; J3480; J3490; J7030; J7060; J7512; J7612; J7644; Q0092